=== PATIENT | male | born 1935 | race Caucasian/White ===

== ENCOUNTER 2021-08-23 01:16 | Outpatient (CLI) | payer OTHER, SELFPAY ==
[2021-08-23 11:43] LABS: Source Nasal/Nares
[2021-08-23 14:08] LABS: COVID-19 PCR Negative (Negative)
== END 2021-08-23 01:17 | disposition home or self-care (01) ==
LOC: LBO 01:16
PROVIDERS: Visit Provider Ophthalmology
DX: Z20.822 Contact with and (suspected) exposure to COVID-19 (principal); Z01.818 Encounter for other preprocedural examination
CPT/HCPCS: 87635

== ENCOUNTER 2021-08-26 08:47 | Day surgery (SDC) | payer OTHER, SELFPAY ==
[2021-08-26] MEDS: Tropicam./Phenyleph. (1/2.5%) 5 ML BTL OD ×3 (09:18→09:31)
[2021-08-26 09:19] VITALS: BP 134/79; PULSE 63; RESP 17; TEMP 36.4; O2SAT 94
--- NOTE | 2021-08-26 10:14 | ANES.PREOP_ITS ---
General Info Date of Service Date Performed: 08/26/21 Height: 5 ft 7 in Weight: 83.1 kg Body Mass Index (BMI): 28.7 Surgical Procedure: Operation Date: 08/26/21 10:40 Proposed Procedures Side Surgeon p Cataract Extraction with IOL Implant Right Avtar Hayes MD Meds Allergies and Home Medications Allergies Allergy/AdvReac Type Severity Reaction Status Date / Time No Known Allergies Allergy Unverified 08/26/21 09:23 Home Medication Medication Instructions Recorded amlodipine 5 mg PO DAILY 08/21/21 aspirin 81 mg PO DAILY 08/21/21 carboxymethylcellulose sodium 1 drp OPHTHALMIC (EYE) BID PRN 08/21/21 clopidogrel 75 mg PO DAILY 08/21/21 fluorometholone 1 drp OPHTHALMIC (EYE) DIRECTED 08/21/21 glipizide 10 mg PO DAILY 08/21/21 glucose 4 g PO DIRECTED 08/21/21 hydrochlorothiazide 25 mg PO DAILY 08/21/21 latanoprost 1 drp OPHTHALMIC (EYE) HS 08/21/21 metformin 1,000 mg PO BID 08/21/21 metoprolol succinate 200 mg PO DAILY 08/21/21 timolol maleate 1 drp OPHTHALMIC (EYE) Q12H 08/21/21 Current Visit Medications: Current Medications Generic Name Dose Route Start Last Admin Trade Name Freq PRN Reason Stop Dose Admin Acetaminophen 1,000 mg 08/26/21 06:00 Acetaminophen 500 Mg Tab PO Q4H PRN PRN Miscellaneous Medication 0 ml 08/26/21 06:00 Prednisolone 1%, Moxifloxacin 0.5%, Nepafenac 0.1% 5ml Btl OD DIRECTED [facility] Miscellaneous Medication 0 ml 08/26/21 06:00 08/26/21 09:31 Tropicam./Phenyleph. 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 PT. STATES HE NO LONGER HAS TO F/U WITH CARDIOLOGY Tobacco Smoking/Tobacco Use Status: Never Alcohol Alcohol Intake: never Substance Use Substance use: Never Substance use type: does not use Vital Signs and Lab Results Vital Signs Most Recent Vital Signs in EMR: Most Recent Vital Signs Temp Pulse Resp BP Pulse Ox 36.4 C L 63 17 134/79 94 08/26/21 09:19 08/26/21 09:19 08/26/21 09:19 08/26/21 09:19 08/26/21 09:19 Point of Care Results Point of Care Results: Finger Stick Blood Glucose 241 08/26/21 09:04 Lab Results Blood Type / Crossmatch: No Data to Display Complete Blood Count: No Data to Display Complete Metabolic Panel: No Data to Display Liver Function Panel: No Data to Display Coagulation Panel: No Data to Display Cardiac Panel: No Data to Display Arterial Blood Gas: No Data to Display Venous Blood Gas: No Data to Display Pancreas Panel: No Data to Display Thyroid Panel: No Data to Display Infectious Disease: Coronavirus (COVID-19)(PCR) Negative (Negative) 08/23/21 08:56 08/23/21 Coronavirus 2019 Source Nasal/Nares 08/23/21 08:56 08/23/21 Blood Cultures: No Data to Display Toxicology Panel: No Data to Display Anesthesia Assessment and Plan Anesthesia History Personal History: No History of Anesthesia Complications Family History: No Family History of Anesthesia Complications Exercise Tolerance Exercise Tolerance: Metabolic Equivalents>4 Pertinent Negatives Pertinent Negatives: No Symptoms of GERD, No Major Cardiovascular Symptoms or Complaints, No Major Pulmonary Symptoms or Complaints and No History of CVA/TIA Cardiac & Pulmonary Exam Cardiac Exam: Normal S1/S2 Heart Sounds Pulmonary Exam: Clear Bilateral Breath Sounds Implantable Cardiac Device Does patient have a Pacemaker or an ICD?: No Airway Exam Known Difficult Airway: No Mallampati Class: 2 Mouth Opening: Normal (> 3cm) Thyromental Distance: Greater than 3 cm Facial Hair: Full [place]ck Range of Motion: Full ROM Neck Circumference: Thick Teeth Condition: Normal Dentition Airway Comments: Multiple missing but no loose teeth ASA Classification ASA Score: ASA 2 Emergency Case?: No NPO Status NPO Status: NPO Clears >2 hours, Solids >8 hours Anesthesia Plan Resuscitation Status: Full Code Anesthesia Technique: MAC Anesthesia Airway Planned: Natural Airway Monitors Used: Standard Monitors
[2021-08-26 10:16] VITALS: BMI 28.7
[2021-08-26] MEDS: Tetracaine 0.5% 4 ML BTL OD (10:27)
[2021-08-26] MEDS: Lidocaine 2% Jelly 6 ML SYR (10:27)
[2021-08-26] MEDS: Balanced Salt Soln.-PLUS 500 ML BAG (10:35)
[2021-08-26] MEDS: Duovisc Viscoelastic System EACH 1 EACH (10:36)
[2021-08-26] MEDS: Povidone-Iodine Ophth 30 ML BTL (10:38)
[2021-08-26 10:58] VITALS: BP 163/78; PULSE 62; RESP 18; TEMP 36.1; O2SAT 97
--- NOTE | 2021-08-26 11:00 | W.PM.DSUDISC ---
Discharge Plan Disposition Patient Disposition: HOME Condition: Good Discharge Details Attending Provider: Avtar Hayes Primary Care Provider: Tigist Tyler Home Meds and New Rx's Prescriptions: No Action latanoprost 0.005 % Drops 1 drp ophthalmic (eye) HS RF: 0 metoprolol succinate 200 mg Tablet Extended Release 24 Hr 200 mg PO DAILY RF: 0 glipizide 10 mg Tablet 10 mg PO DAILY RF: 0 clopidogrel 75 mg Tablet 75 mg PO DAILY RF: 0 amlodipine 5 mg Tablet 5 mg PO DAILY RF: 0 aspirin 81 mg Tablet,Delayed Release (Dr/Ec) 81 mg PO DAILY RF: 0 carboxymethylcellulose sodium 0.5 % Drops 1 drp ophthalmic (eye) BID PRNRF: 0 metformin 1,000 mg Tablet 1,000 mg PO BID RF: 0 fluorometholone 0.1 % Drops,Suspension 1 drp ophthalmic (eye) DIRECTED RF: 0 hydrochlorothiazide 25 mg Tablet 25 mg PO DAILY RF: 0 timolol maleate 0.5 % Drops 1 drp ophthalmic (eye) Q12H RF: 0 glucose Tablet,Chewable 4 g PO DIRECTED RF: 0 Discharge Instructions Stand Alone Forms: Post-op Topical CataractAve (DSU) Discharge Orders Discharge Orders: Discharge Order (Routine); Ordered 08/26/21 Ordered By: Avtar Hayes DS: Diagnosis Discharge Diagnosis (1) Nuclear sclerotic cataract of right eye: Status: Resolved (2) Cortical cataract of right eye: Status: Resolved
--- NOTE | 2021-08-26 11:01 | ROE_ITS ---
Date of service: 08/26/21 Time of Service: 11:01 Operative Note Operative Note DATE OF PROCEDURE: 08/26/21 PRE-OP DIAGNOSIS: Nuclear/cortical cataract, right eye Poorly dilating pupil, right eye POST-OP DIAGNOSIS: same PROCEDURE: Cataract extraction using phacoemulsification with intraocular lens implant, right eye Pupillary dilation, right eye using 6.25 mm Malyugin Ring device SURGEON: Avtar Hayes ANESTHESIA TYPE: Local By Surgeon and MAC Refer to Anesthesia Record ESTIMATED BLOOD LOSS: 0 PATHOLOGY: none sent COMPLICATIONS: None Patient was transported to: same day Patient's condition: stable Implants: Inocente Clareon [id number] Indications: Progressive decreased vision due to cataract, right eye Procedure Description: CATARACT SURGERY OPERATIVE REPORT PREOPERATIVE DIAGNOSIS: Nuclear/cortical cataract, right eye Poorly dilating pupil, right eye POSTOPERATIVE DIAGNOSIS: Same OPERATION: Cataract extraction using phacoemulsification with posterior chamber intraocular lens implant, right eye. Pupil dilation and iris stabilization with pupillary expansion device. IOL: IOL Die Storage Clerk/Model: Inocente Clareon [id number] IOL Power: + 22.5 diopters IOL Serial Number: [id number] Optic Diameter: 6.0mm Haptic/Overall Diameter: 13.0mm PHACO INFO: Inocente mGeneratorurion Vision System with OZil and Active Fluidics Cumulative Dispersed Energy (CDE): 8.94 seconds SURGEON: Avtar Hayes MD, EMANUEL ANESTHESIA: Monitored Anesthesia Care (MAC), with local sub-tenon's anesthetic infiltration COMPLICATIONS: None SPECIMENS: None INDICATIONS FOR PROCEDURE: The patient is a 86-year-old gentleman with history of diminished visual acuity in his right eye secondary to the development of nuclear and cortical cataract. The option of cataract surgery was offered to the patient and he wished to proceed. He has poorly dilating pupil in the right eye. PROCEDURE: The correct surgical eye was identified and marked as the right eye and the pupil was dilated in the preoperative area using mydriatics and cy cloplegics. The dilated pupil size was 4.0 mm. He elected to proceed without oral sedation.. The patient was brought to the operating room where cardiopulmonary monitoring was instituted and surgical time-out was performed, confirming the correct operative eye and IOL power. Topical anesthesia was administered and ophthalmic povidone-iodine 5% was instilled into the conjunctival fornices. Lidocaine gel was applied to the cornea and the adams-ocular area was prepped with Betadine 10% solution and draped in the usual sterile fashion for intraocular surgery, including an aperture drape. A Tegaderm transparent film dressing was cut in half and used to cover the lashes and lid margins. Care was taken to sequester the lashes and lid margins under the Tegaderm dressing. A lid speculum was placed between the lids of the operative eye and the Ana-Ann operating microscope was maneuvered into position. Ave scissors were then used to make a conjunctival buttonhole approximately 6mm posterior to the limbus in the inferonasal quadrant. Blunt dissection was carried out to expose bare sclera, and a blunt-tipped sub-tenon?s anesthesia cannula was introduced and passed posteriorly along the globe where non- preserved plain lidocaine was injected into posterior sub-Tenon?s space. A sideport knife was used to make a paracentesis port inferiortemporally. Intraocular phenylephrine/lidocaine was injected into the anterior chamber. The anterior chamber was then filled with viscoelastic. A 2.4mm keratome knife was used to create a half-thickness groove at the limbus and then to construct a three-plane near-clear corneal tunnel extending 2.0mm into clear cornea in the superiortemporal position. A 6.25 mm pupil expansion device was inserted into the pupillary space and engaged with the Kuglen hook.. A flap was raised on the anterior capsule and capsulorhexis forceps were used to complete a continuous curvilinear capsulorhexis of 5.0 mm. Balanced salt solution was then used to perform cortical cleaving hydrodissection and nuclear hydrodelineation until the lens could be freely rotated within the capsular bag. The lens nucleus was then disassembled and removed within the capsular bag and iris plane using phacoemulsification. Residual cortical material was removed using the I/A handpiece. The posterior capsule was carefully polished to remove as much residual lens epithelial cells as safely possible. The capsular bag was then inflated and the anterior chamber deepened with viscoelastic. The lens implant described above was inserted into the capsular bag using the Inocente Autonome Injector. A Kuglen hook was used to dial the IOL into position. The Malyugin Ring was then removed in the reverse order of its insertion. Residual viscoelastic was then removed first from posterior to the IOL, then from the anterior chamber using the I/A handpiece. The lens implant was noted to center nicely within the capsular bag. The incisions were stromally hydrated, and the anterior chamber was reformed using BSS. Then 0.5cc of moxifloxacin 1.0mg/ml were injected into the capsular bag and anterior chamber. The incisions were checked with a Weck spear and found to be secure. Several drops of ophthalmic povidone-iodine 5% were then applied to the eye followed by two drops of Imprimis combination prednisolone/moxifloxacin/nepafenac solution. The drapes were removed and a clear plastic protective eye shield was placed over the eye. The patient was then returned to Same Day Surgery in stable condition.
--- NOTE | 2021-08-26 11:02 | W.ANESPOSTOP ---
Postoperative Evaluation Date, Time and Location Date Performed: 08/26/21 Time Performed: 11:03 Patient Location: Day Surgery Unit Vital Signs Most Recent Imported Vital Signs: Most Recent Vital Signs Temp Pulse Resp BP Pulse Ox 36.4 C L 63 17 134/79 94 08/26/21 09:19 08/26/21 09:19 08/26/21 09:19 08/26/21 09:19 08/26/21 09:19 Most Recent Manually Entered Vital Signs: Adult Blood Pressure: 163/78 Heart Rate: 57 Respirations: 12 Oxygen Saturation (%): 97 Temperature (C): 36.3 C Pain Score (0-10 Scale): 0 Pain Score Most Recent Pain Score: Most Recent Pain Score Pain Level 0 08/26/21 09:19 Assessment Mental Status: Awake (Alert & Oriented to Patient Baseline) Airway and Respiratory Function: Patent airway with normal (patient baseline) respiratory exam Cardiovascular Function: Hemodynamically Stable Hydration Status: Adequately Hydrated Nausea & Vomiting: No Nausea or Vomiting Pain: Pt. Denies Any Pain Peripheral Nerve Block: Patient did not receive a nerve block
[2021-08-26 11:03] VITALS: BP 163/78; PULSE 57; RESP 12; TEMPC 36.3; O2SAT 97
== END 2021-08-26 11:22 | disposition home or self-care (01) ==
PROVIDERS: PCP Occupational Therapist; Visit Provider Ophthalmology
PROC: (CPT 66982; principal; 2021-08-26 10:30)
DX: H25.11 Age-related nuclear cataract, right eye (principal); H57.03 Miosis; E11.9 Type 2 diabetes mellitus without complications; I10 Essential (primary) hypertension; E78.5 Hyperlipidemia, unspecified; I25.10 Atherosclerotic heart disease of native coronary artery without angina pectoris
CPT/HCPCS: 66982; V2632

== ENCOUNTER 2021-12-27 03:12 | Inpatient (IN) | payer OTHER, SELFPAY ==
[2021-12-27] VITALS (23 sets, daily range): BP systolic 123–195; BP diastolic 66–101; PULSE 56–80; RESP 13–63; TEMP 36.4–37; O2SAT 90–97
--- NOTE | 2021-12-27 03:00 | RT.EKG_ITS ---
APPROVED REPORT Exam: Resting ECG Reason for Exam: chest pain Patient Location: E HR:61 bpm ECG Measurements Heart Rate 61 AXIS NC 199 P 18 QRSd 105 QRS 53 QT 447 T 35 QTc 451 Conclusion Sinus rhythm...normal P axis, V-rate 60- 99 Ventricular premature complex...V complex w/ short R-R interval
--- NOTE | 2021-12-27 03:15 | DI.CT_ITS ---
Exam(s) CT THORAX ABD/PEL CTA EXAM: CT THORAX ABD/PEL CTA CLINICAL HISTORY: pain low abd to chest. TECHNIQUE: Imaging Protocol: Axial CT angiography was performed with multi-slice acquisition and m ulti-planar and/or 3D reconstructions. CONTRAST MATERIAL: Intravenous: Isovue 370 contrast volume:100 mL Oral: No COMPARISON: No exams were available for comparison FINDINGS: CHEST: Tracheobronchial tree: Patent where visualized. Pulmonary parenchyma: No consolidation or dominant measurable mass. No architectural distortion. Pulmonary Arteries: No evidence of filling defect to suggest pulmonary emboli. Mediastinum and Courtney: No dominant adenopathy or fluid collection. There is a small hiatal hernia. Th e esophagus is otherwise unremarkable. Visualized thyroid: Unremarkable. Pleura: No effusion or pneumothorax. Heart: Cardiomegaly. Coronary artery calcifications and/or vascular stents are present. No pericard ial effusion. Aorta: Thoracic aorta non-dilated. No evidence of dissection. There is mild atherosclerosis present. Soft Tissues: Unremarkable. Bones: Sternal wires are in place.Age-appropriate degenerative changes are seen in the spine. ABDOMEN AND PELVIS: Abdomen: Celiac axis/mesenteric arteries: No evidence of occlusion or significant stenosis. Mild atherosclero sis is present. Renal Arteries: No evidence of occlusion or significant stenosis. There is a single renal artery per fusing each kidney. Mild atherosclerosis is seen at the origins. Aorta: No evidence of occlusion or significant stenosis. No aneurysm or dissection. Atherosclerosi s is present. Pelvis: Iliac Arteries: No evidence of occlusion or significant stenosis. Atherosclerosis is present. Common Femoral Arteries: No evidence of occlusion or significant stenosis. Atherosclerosis is prese nt. ABDOMEN: Liver: Normal density. No measurable mass. Portal, Superior Mesenteric, and Splenic Veins: Evaluation is limited as the veins are not well opaci fied on this arterial examination. Gallbladder and Biliary Tract: No radiodense calculus or dilation. Pancreas: Normal density, no abnormal calcifications or inflammatory process. Spleen: Normal. Adrenals: No masses seen. Kidneys: Normal size, contour and axis. No radiodense stones or obstructive uropathy. Bilateral simpl e renal cysts are present. No follow-up is recommended. Bowel: No obstruction or bowel wall thickening. No evidence of appendicitis. There is diverticulosis seen in the descending and sigmoid colon but no evidence of acute diverticulitis. Peritoneal Cavity: No ascites, collection or mesenteric inflammatory response. No free air. Lymph Nodes: Within normal limits. Bones: Degenerative changes are seen in the spine. Soft Tissues: There is a small fat containing umbilical hernia. There are bilateral fat containing i nguinal hernias. PELVIS: Bladder: Symmetric distention, no gross wall thickening. Reproductive Organs: Prostate gland is enlarged. Lymph Nodes: Within normal limits. Bones: Within normal limits. IMPRESSION: No acute findings in the chest, abdomen or pelvis. RADIATION DOSE DELIVERED: 948.86mGy.cm Total DLP DATA REPOSITORY: All CT scans at this facility are submitted to the National Radiology Data Registry (NRDR) Dose Index Registry (DIR) with the [employer] (A[employer]). RADIATION OPTIMIZATION: All CT scans at this facility use at least one of these dose optimization te chniques: automated exposure control; mA and/or kV adjustment per patient size (includes targeted exa ms where dose is matched to clinical indication); or iterative reconstruction.
[2021-12-27 03:32] LABS: Abs Immature Grans 0.06 10^3/uL (0.0-0.06); Absolute Basophil Count 0.04 10^3/uL (0.0-0.2); Absolute Lymphocyte Count 2.54 10^3/uL (1.2-3.4); Absolute Monocyte Count 0.77 10^3/uL (0.1-0.8); Basophils % 0.4; Eosinophils % 3.1; HCT 42.8 % (40.0-50.0); HGB 14.3 g/dL (13.5-17.5); Immature Grans % 0.6; Lymphocytes % 26.4; MCH 31.4 pg (27.0-33.0); MCHC 33.4 % (32.0-36.0); MCV 94 fL (80-95); MPV 10.1 fL (8.0-11.0); Neutrophils % 61.5; Platelet Count 248 10^3/uL (130-400); RBC 4.55 10^6/uL (4.36-5.78); RDW-SD 48.5 fL; WBC 9.61 10^3/uL (4.4-10.8)
[2021-12-27 03:46] LABS: PTT Activated 24.3 sec (21.0-27.5)
[2021-12-27 03:48] LABS: ALT 51 U/L (16-63); AST 26 U/L (15-37); Albumin 3.5 g/dL (3.4-5.0); Alkaline Phosphatase 47 U/L (46-116); Anion Gap 7.9 mmol/L (3-11); BUN 23 mg/dL (7-18); Bilirubin, Total 0.5 mg/dL (0.2-1.0); CO2 28.1 mmol/L (21.0-32.0); CREATININE 1.1 mg/dL (0.70-1.30); Calcium 9.5 mg/dL (8.5-10.1); Chloride 104 mmol/L (98-107); Glucose 198 mg/dL (74-106); Magnesium 1.6 mg/dL (1.8-2.4); Potassium 4.7 mmol/L (3.5-5.1); Sodium 140 mmol/L (136-145); Total Protein 7.6 g/dL (6.4-8.2)
[2021-12-27 03:49] LABS: Troponin I 122 ng/L (<or=60)
--- NOTE | 2021-12-27 04:24 | W.ED.GENAD ---
Discharge Plan Disposition Patient Disposition: STILL A PATIENT Condition: Serious Discharge Details Chief Complaint: Chest Pain Clinical Impression: Acute non-ST elevation myocardial infarction (NSTEMI), Hypomagnesemia, Hypertension Primary Care Provider: Tigist Tyler ED Provider: Parmjit Donovan Home Meds and New Rx's Prescriptions: No Action latanoprost 0.005 % Drops 1 drp ophthalmic (eye) HS metoprolol succinate 200 mg Tablet Extended Release 24 Hr 200 mg PO DAILY glipizide 10 mg Tablet 10 mg PO DAILY clopidogrel 75 mg Tablet 75 mg PO DAILY amlodipine 5 mg Tablet 5 mg PO DAILY aspirin 81 mg Tablet,Delayed Release (Dr/Ec) 81 mg PO DAILY carboxymethylcellulose sodium 0.5 % Drops 1 drp ophthalmic (eye) BID PRN metformin 1,000 mg Tablet 1,000 mg PO BID fluorometholone 0.1 % Drops,Suspension 1 drp ophthalmic (eye) DIRECTED Rx Instructions: in left eye q other day hydrochlorothiazide 25 mg Tablet 25 mg PO DAILY timolol maleate 0.5 % Drops 1 drp ophthalmic (eye) Q12H glucose Tablet,Chewable 4 g PO DIRECTED Medical Decision Making 400 -- 86yo male with history of coronary artery disease status post CABG in 2000, subsequent coronary stents, hypertension, hyperlipidemia, diabetes, here with chest discomfort that woke him from sleep and has persisted over the past 2 hours. Pain initially radiated from his abdomen to his chest. Pain did seem to respond to 2 sublingual nitroglycerin that he took at home. Patient is mildly hypertensive but otherwise hemodynamically stable. I am concerned about acute life-threatening illness. Given location of pain starting his abdomen rating up centrally I am concerned about the the potential for a thoracic aortic dissection. Plan to obtain CTA of the chest abdomen pelvis. Consider ACS. EKG was reviewed and interpreted by me: Please see report, there are subtle ST depressions noted lead I and aVL, no STEMI. --Initial labs reviewed: Troponin 122. Creatinine normal. Mild hypomagnesemia noted of 1.6. 428 --I reviewed CTA of the chest abdomen pelvis and no apparent dissection. Plan to initiate treatment with heparin bolus and infusion, Plavix 600 mg and aspirin. On reassessment, patient notes return of chest pain currently moderate. Plan to give nitroglycerin sublingual and initiate nitroglycerin infusion. 434 -- repeat EKG was reviewed and interpreted by me: Patient now with deepening ST depressions lead I and aVL and new depresions V4-V6. 435 -- I called [facility] transfer center to request transfer and they noted they do not believe they have a bed available but will perform bed check and return call. 445-- I caled [facility] transfer center to request transfer. CTA of the chest was interpreted by radiology: No acute findings. Heart noted to be unremarkable with no cardiomegaly no pericardial effusion. CTA of the abdomen pelvis was interpreted by radiology: No acute findings. 502 --patient reassessed and now pain free with nitroglycerin infusion. I spoke with Dr. Sebastian, advertisement compositor at [facility], discussed ED presentation and course, he agrees with need for transfer and recommends holding here until bed available. He does recommend calling back should pain return. 519 -- I spoke with Dr. Marina, communications professional at [facility], discussed ED presentation course, EKGs were sent for review, he will discuss case with interventional cardiology and get back to me. 611 -- I spoke again with Dr. Marina, he notes that patient will be accepted by Dr. Shaw but not bed immediately available. Possible bed available later today. 654 -- Patient reassessed and continues to be pain free on nitro infusion. Patient continues to have frequent PVCs on monitor. I will give magnesium 1 g IV. Lab Data Lab results reviewed: Yes I reviewed the patient's lab results. Labs: Laboratory Tests Range/Units 12/27/21 12/27/21 12/27/21 03:23 03:23 03:23 WBC (4.4-10.8) 10^3/uL 9.61 RBC (4.36-5.78) 10^6/uL 4.55 Hgb (13.5-17.5) g/dL 14.3 Hct (40.0-50.0) % 42.8 MCV (80-95) fL 94 MCH (27.0-33.0) pg 31.4 MCHC (32.0-36.0) % 33.4 RDW (11.8-14.1) % 14.0 Plt Count (130-400) 10^3/uL 248 MPV (8.0-11.0) fL 10.1 Immature Gran % 0.6 Neutrophils % 61.5 Lymphocytes % 26.4 Monocytes % 8.0 Eosinophils % 3.1 Basophils % 0.4 Nucleated RBC % (0.0-0.3) % 0.0 Absolute Neutrophils (1.2-6.7) 10^3/uL 5.90 Absolute Lymphocytes (1.2-3.4) 10^3/uL 2.54 Absolute Monocytes (0.1-0.8) 10^3/uL 0.77 Absolute Eosinophils (0.0-0.7) 10^3/uL 0.30 Absolute Basophils (0.0-0.2) 10^3/uL 0.04 APTT (21.0-27.5) sec 24.3 Sodium (136-145) mmol/L 140 Potassium (3.5-5.1) mmol/L 4.7 Chloride (98-107) mmol/L 104 Carbon Dioxide (21.0-32.0) mmol/L 28.1 Anion Gap (3-11) mmol/L 7.9 BUN (7-18) mg/dL 23 H Creatinine (0.70-1.30) mg/dL 1.1 Estimated GFR/1.73 m2 (mL/min/1.73m2) >= 60.00 Glucose (74-106) mg/dL 198 H Calcium (8.5-10.1) mg/dL 9.5 Magnesium (1.8-2.4) mg/dL 1.6 L Total Bilirubin (0.2-1.0) mg/dL 0.5 AST (15-37) U/L 26 ALT (16-63) U/L 51 Alkaline Phosphatase (46-116) U/L 47 Troponin I (<or=60) ng/L 122 H* Total Protein (6.4-8.2) g/dL 7.6 Albumin (3.4-5.0) g/dL 3.5 HPI General Mode of arrival: ambulatory. Date/Time Provider Initiated Documentation: 12/27/21 03:17. Limitations to Documentation: no limitations. Information obtained by: patient. HPI Narrative: 86-year-old male with history of coronary artery disease status post remote CABG 2000, diabetes, hyperlipidemia, hypertension, presents with chief complaint of chest pain. Patient notes he was sleeping and developed chest pain that woke him around 10 PM. Patient notes pain started in his lower abdomen and radiated up centrally into his chest. Pain was initially severe 03/29. He notes he initially thought discomfort might be indigestion although it did feel similar to when he had ACS requiring bypass. He notes to get out of bed set up and discomfort continued. He later took 2 sublingual nitroglycerin about 30 minutes prior to arrival. Patient notes pain improved after nitro and then resolved in route to the hospital. He has no pain at this time. No associated shortness of breath. No leg pain or swelling. Patient notes that yesterday he was feeling well before he went to bed. Related Data Home Medications Medication Instructions Recorded Confirmed amlodipine 5 mg tablet 5 mg PO DAILY 08/21/21 12/27/21 aspirin 81 mg tablet,delayed 81 mg PO DAILY 08/21/21 12/27/21 release carboxymethylcellulose sodium 0.5 1 drp ophthalmic (eye) BID PRN 08/21/21 12/27/21 % eye drops clopidogrel 75 mg tablet 75 mg PO DAILY 08/21/21 12/27/21 fluorometholone 0.1 % eye 1 drp ophthalmic (eye) DIRECTED 08/21/21 12/27/21 drops,suspension glipizide 10 mg tablet 10 mg PO DAILY 08/21/21 12/27/21 glucose 4 g PO DIRECTED 08/21/21 12/27/21 hydrochlorothiazide 25 mg tablet 25 mg PO DAILY 08/21/21 12/27/21 latanoprost 0.005 % eye drops 1 drp ophthalmic (eye) HS 08/21/21 12/27/21 metformin 1,000 mg tablet 1,000 mg PO BID 08/21/21 12/27/21 metoprolol succinate 200 mg 200 mg PO DAILY 08/21/21 12/27/21 tablet,extended release 24 hr timolol maleate 0.5 % eye drops 1 drp ophthalmic (eye) Q12H 08/21/21 12/27/21 Allergies Allergy/AdvReac Type Severity Reaction Status Date / Time No Known Allergies Allergy Unverified 12/27/21 03:20 General Stated Complaint: Chest Pain GILMER: 3 PFSH All Active Problems (Updated 12/27/21 @ 04:49 by Parmjit Donovan MD) Acute non-ST elevation myocardial infarction (NSTEMI) (Acute) Hypomagnesemia (Acute) Hypertension (Chronic) Medical History (Updated 12/27/21 @ 04:49 by Parmjit Donovan MD) ASCVD (arteriosclerotic cardiovascular disease) Cervicalgia Diabetes mellitus HLD (hyperlipidemia) HTN (hypertension) Hx of renal calculi Low back pain Surgical History (Updated 08/26/21 @ 11:01 by Avtar Hayes MD) Hx of appendectomy Hx of CABG 2000. PT. STATES HE NO LONGER HAS TO F/U WITH CARDIOLOGY Social History Smoking/Tobacco Use Status: Never Smoking risk assessment performed?: Yes Alcohol Intake: never Drug use: Never Substance use type: does not use Do you feel safe at home: Yes Do you feel safe in your relationship?: Yes Exam Const General: cooperative and no acute distress Orientation: alert and awake HENMT Head: normocephalic Mouth: moist mucous membranes Eyes Conjunctivae: normal conjunctivae Sclera: normal sclerae EOM: EOM intact bilaterally Neck Neck: trachea midline and supple Resp Auscultation: clear to auscultation bilaterally, no rales, no rhonchi and no wheezes Cardio Rate: regular rate and not tachycardic Rhythm: regular rhythm GI Palpation: soft, not firm, no guarding, no masses, not rigid and nontender Skin General skin exam: no rashes or lesions noted Neuro General: patient alert, patient awake and tone normal Extrem General: no calf tenderness and no edema Psych Appearance: grossly normal Mental Status: mental status grossly normal Speech and Movement: speech and movement normal Course Vital Signs Vital signs: Vital Signs Temperature 36.4 C L 12/27/21 03:16 Pulse 62 12/27/21 03:16 Respiratory Rate 17 12/27/21 03:16 Blood Pressure 155/81 H 12/27/21 03:16 Pulse Oximetry 94 12/27/21 03:16 Temperature 36.4 C L 12/27/21 03:16 Temperature Source Skin 12/27/21 03:16 Pulse 56 L 12/27/21 04:01 Pulse 63 12/27/21 04:01 Respiratory Rate 20 12/27/21 04:01 Respiratory Effort Non-Labored 12/27/21 03:27 Respiratory Depth Normal 12/27/21 03:27 Respiratory Pattern Normal 12/27/21 03:27 Blood Pressure 126/76 12/27/21 04:01 Blood Pressure Mean 88 12/27/21 04:01 Pulse Oximetry 93 12/27/21 04:01 Pain Level 5 12/27/21 03:16 Lab/Test Results Lab/Test Results: Laboratory Tests Range/Units 12/27/21 12/27/21 12/27/21 03:23 03:23 03:23 WBC (4.4-10.8) 10^3/uL 9.61 RBC (4.36-5.78) 10^6/uL 4.55 Hgb (13.5-17.5) g/dL 14.3 Hct (40.0-50.0) % 42.8 MCV (80-95) fL 94 MCH (27.0-33.0) pg 31.4 MCHC (32.0-36.0) % 33.4 RDW (11.8-14.1) % 14.0 Plt Count (130-400) 10^3/uL 248 MPV (8.0-11.0) fL 10.1 Immature Gran % 0.6 Neutrophils % 61.5 Lymphocytes % 26.4 Monocytes % 8.0 Eosinophils % 3.1 Basophils % 0.4 Nucleated RBC % (0.0-0.3) % 0.0 Absolute Neutrophils (1.2-6.7) 10^3/uL 5.90 Absolute Lymphocytes (1.2-3.4) 10^3/uL 2.54 Absolute Monocytes (0.1-0.8) 10^3/uL 0.77 Absolute Eosinophils (0.0-0.7) 10^3/uL 0.30 Absolute Basophils (0.0-0.2) 10^3/uL 0.04 APTT (21.0-27.5) sec 24.3 Sodium (136-145) mmol/L 140 Potassium (3.5-5.1) mmol/L 4.7 Chloride (98-107) mmol/L 104 Carbon Dioxide (21.0-32.0) mmol/L 28.1 Anion Gap (3-11) mmol/L 7.9 BUN (7-18) mg/dL 23 H Creatinine (0.70-1.30) mg/dL 1.1 Estimated GFR/1.73 m2 (mL/min/1.73m2) >= 60.00 Glucose (74-106) mg/dL 198 H Calcium (8.5-10.1) mg/dL 9.5 Magnesium (1.8-2.4) mg/dL 1.6 L Total Bilirubin (0.2-1.0) mg/dL 0.5 AST (15-37) U/L 26 ALT (16-63) U/L 51 Alkaline Phosphatase (46-116) U/L 47 Troponin I (<or=60) ng/L 122 H* Total Protein (6.4-8.2) g/dL 7.6 Albumin (3.4-5.0) g/dL 3.5 Critical Care Time Critical Care Time Critical Care Time: Yes Total Critical Care Time: 80 Attestation: I spent greater than 80 minutes addressing this patient's immediate life threats. Please see MDM section of note. This time was spent engaged in work directly related to the patient's care, exclusive of separate procedures, and failure to initiate these interventions would have likely resulted in clinically significant or life threatening deterioration in the patient's condition.
--- NOTE | 2021-12-27 04:30 | RT.EKG_ITS ---
APPROVED REPORT Exam: Resting ECG Reason for Exam: chest pain Patient Location: E HR:76 bpm ECG Measurements Heart Rate 76 AXIS IL 214 P 10 QRSd 104 QRS 68 QT 396 T 154 QTc 447 Conclusion Sinus rhythm...normal P axis, V-rate 60- 99 Multiple ventricular premature complexes...V complexes w/ short R-R intervls Borderline prolonged IL interval...IL >212, V-rate 50- 90 Repol abnrm suggests ischemia, lateral leads...ST dep, T neg, I aVL V5 V6
[2021-12-27] MEDS: nitroGLYcerin 0.4 MG TAB SL (04:34)
[2021-12-27] MEDS: Aspirin 81 MG CHEW 324 MG CH (04:36)
[2021-12-27] MEDS: Clopidogrel 300 MG TAB 600 MG PO (04:36)
--- NOTE | 2021-12-27 04:39 | DI.VRAD_ITS ---
PROCEDURE INFORMATION: Exam: CTA Chest With Contrast Exam date and time: 12/27/2021 4:16 AM Age: 86 years old Clinical indication: Chest wall pain; Abdominal pain; Localized; Lower; Prior surgery; Surgery date: 6+ months; Surgery type: Cabg; Additional info: Aute chest pain and lower abd pain TECHNIQUE: Imaging protocol: Computed tomographic angiography of the chest with contrast. 3D rendering (Not supervised by radiologist): MIP and/or 3D reconstructed images were created by the technologist. Radiation optimization: All CT scans at this facility use at least one of these dose optimization techniques: automated exposure control; mA and/or kV adjustment per patient size (includes targeted exams where dose is matched to clinical indication); or iterative reconstruction. Contrast material: ISOVUE 370; Contrast volume: 100 ml; Contrast route: INTRAVENOUS (IV); COMPARISON: No relevant prior studies available. FINDINGS: Pulmonary arteries: Normal. No pulmonary emboli. Aorta: Unremarkable. No aortic aneurysm. No aortic dissection. Lungs: Unremarkable. No consolidation. No masses. Pleural spaces: Unremarkable. No pneumothorax. No pleural effusion. Heart: Unremarkable. No cardiomegaly. No pericardial effusion. Lymph nodes: Unremarkable. No enlarged lymph nodes. Diaphragm: Tiny hiatal hernia. Bones/joints: Unremarkable. No acute fracture. Soft tissues: Unremarkable. IMPRESSION: No acute finding. PROCEDURE INFORMATION: Exam: CTA Abdomen and Pelvis With Contrast Exam date and time: 12/27/2021 4:16 AM Age: 86 years old Clinical indication: Chest wall pain; Abdominal pain; Localized; Lower; Prior surgery; Surgery date: 6+ months; Surgery type: Cabg; Additional info: Aute chest pain and lower abd pain TECHNIQUE: Imaging protocol: Computed tomographic angiography of the abdomen and pelvis with contrast material. 3D rendering (Not supervised by radiologist): MIP and/or 3D reconstructed images were created by the technologist. Radiation optimization: All CT scans at this facility use at least one of these dose optimization techniques: automated exposure control; mA and/or kV adjustment per patient size (includes targeted exams where dose is matched to clinical indication); or iterative reconstruction. Contrast material: ISOVUE 370; Contrast volume: 100 ml; Contrast route: INTRAVENOUS (IV); COMPARISON: No relevant prior studies available. FINDINGS: Aorta: No aortic aneurysm. No aortic dissection. Celiac trunk and mesenteric arteries: No occlusion or significant stenosis. Renal arteries: No occlusion or significant stenosis. Right iliac arteries: No occlusion or significant stenosis. Left iliac arteries: No occlusion or significant stenosis. Liver: Hepatic steatosis. Gallbladder and bile ducts: Unremarkable. No calcified stones. No ductal dilation. Pancreas: Unremarkable. No mass. No ductal dilation. Spleen: Unremarkable. No splenomegaly. Adrenal glands: Unremarkable. No mass. Kidneys and ureters: Renal cysts. No hydronephrosis. Stomach and bowel: Colonic diverticula. Appendix: No evidence of appendicitis. Intraperitoneal space: Unremarkable. No free air. No significant fluid collection. Lymph nodes: Unremarkable. No enlarged lymph nodes. Urinary bladder: Unremarkable. No mass. Reproductive: Prostate hypertrophy. Bones/joints: No acute fracture. Soft tissues: Fat containing inguinal hernias. IMPRESSION: No acute findings. Dictated and Authenticated by: Theo Malone MD. Ordering:LUNA Parnell MD
[2021-12-27 05:19] LABS: Source Nasal/Nares
[2021-12-27 06:07] LABS: COVID-19 PCR Negative (Negative)
[2021-12-27 07:02] LABS: Troponin I 109 ng/L (<or=60)
[2021-12-27] MEDS: MAGNESIUM SULFATE 1 GM/100 ML BAG IVPB ×2 (07:13→12:21)
[2021-12-27] MEDS: nitroGLYcerin in D5W 50 MG/250 ML BTL IV (07:23)
--- NOTE | 2021-12-27 11:04 | W.EDPROG ---
Date of service: 12/27/21 Time of Service: 11:04 Medical Decision Making Resting comfortably no acute distress chest pain-free, given dynamic EKG changes elevated troponin patient likely experiencing an NSTEMI. Heparin has been started patient is on nitro drip. Was excepted at [facility] and [facility] however due to bed situation [facility] has canceled acceptance, diagnosis bed situation may not clear up for another 12 hours to a day, patient will be admitted here at [facility] to the ICU for close monitoring of hemodynamic status and chest pain. Family amenable to plan. Sign Out Sign Out Data: Sign Out Comment: Patient with NSTEMI and concerning dynamic changes on EKG. Now pain-free on nitroglycerin and heparin infusions. He has received aspirin, Plavix, magnesium 1 g IV. Patient is pending transfer, awaiting bed availability. Last updated by Parmjit Donovan MD at 12/27/21 07:23 Discharge Plan Disposition Patient Disposition: [facility] INPATIENT Condition: Serious Discharge Details Clinical Impression: Acute non-ST elevation myocardial infarction (NSTEMI), Hypomagnesemia, Hypertension Primary Care Provider: Tigist Tyler ED Provider: Avtar Nunez Home Meds and New Rx's Prescriptions: No Action latanoprost 0.005 % Drops 1 drp ophthalmic (eye) HS metoprolol succinate 200 mg Tablet Extended Release 24 Hr 200 mg PO DAILY glipizide 10 mg Tablet 10 mg PO DAILY clopidogrel 75 mg Tablet 75 mg PO DAILY amlodipine 5 mg Tablet 5 mg PO DAILY aspirin 81 mg Tablet,Delayed Release (Dr/Ec) 81 mg PO DAILY carboxymethylcellulose sodium 0.5 % Drops 1 drp ophthalmic (eye) BID PRN metformin 1,000 mg Tablet 1,000 mg PO BID fluorometholone 0.1 % Drops,Suspension 1 drp ophthalmic (eye) DIRECTED Rx Instructions: in left eye q other day hydrochlorothiazide 25 mg Tablet 25 mg PO DAILY timolol maleate 0.5 % Drops 1 drp ophthalmic (eye) Q12H glucose Tablet,Chewable 4 g PO DIRECTED alogliptin 25 mg Tablet 25 mg PO DAILY
[2021-12-27 11:29] LABS: PTT Activated 56.6 sec (21.0-27.5)
--- NOTE | 2021-12-27 12:14 | NUR.NOTE ---
Patient arrives at 11:45 a.m. on ICU. RN hears from ED nurse who says patient has a bed at [facility]. RN begins working on transfer paperwork and notifies Dr. Peña who shortly thereafter arrives on unit to work on paperwork.Nursing Note:
--- NOTE | 2021-12-27 12:22 | HPE_ITS ---
Date of service: 12/27/21 Time of Service: 12:22 Assessment and Plan Assessment and plan (1) Acute non-ST elevation myocardial infarction (NSTEMI): Status: Acute Assessment and plan: Continue heparin gtt, nitroglycerin gtt, asa. Transferring to [facility] for a cardiac cath. NPO. (2) Hypomagnesemia: Status: Acute Assessment and plan: Repleted (3) Hypertension: Status: Chronic Assessment and plan: Continue outpatient management (4) Diabetes mellitus: Assessment and plan: NPO. SSI 6 hrs. This H&P also acts as a transfer summary due to temporal proximity of admission and transfer. Total Critical Care Time 60 minutes. History of Present Illness History of Present Illness Chief Complaint: chest pain Narrative: Mr Dias is an 86 year old male with PMHx of CAD s/p CABG in 2000, as well as h/o NIDDM2, HTN, hyperlipidemia, who was briefly a patient in [facility] ICU under the hospitalist service on 12/27/21 having presented to [facility] ED with chest pain and dynamic EKG changes with a mild elevation in his troponins. The patient stated that the pain first started in his lower midabdomen and then moved to mid chest while he was walking and moved away with rest. It returned waking him up from sleep at about 10 pm last night. Nitroglycerin helped. When the patient set up, he was still feeling the pain. He thought he was having indigestion or heartburn, but decided to go to the ED. The pain was not accompanied by dizziness, palpitations, shortness of breath, nausea, and it did not radiate. In the ED, he was noted to have dynamic changes in his EKG with deepening T wave inversions in leads 1 and AVL. He had a negative CTA of chest, abdomen, and pelvis. His troponins were 122 and 109 on repeat 3 hrs later. He was treated with plavix load, aspirin, heparin drip and nitroglycerin gtt. He is currently symptom free. The patient does endorse having COVID about 2 weeks ago. He is now symptom free from covid-19. He tested negative for COVID-19 by nasal PCR on arrival to the ED. He was accepted in transfer at both [facility] and [facility] pending bed availability for an evaluation for a cardiac catheterization, unavailable at our facility. A bed has now become available at [facility]. He is accepted to Dr Shaw's service and is hemodynamically stable for transfer. He is medically stable for transfer. Care for patient as well as completion of his discharge summary took 60 minutes on the day of transfer. Please, look at MAR for list of his inpatient medications as the list of medications in this summary includes outpatient prescriptions only. This H&P is also acting as the patient's transfer summary. Review of Systems All systems reviewed & are unremarkable except as noted in HPI and below PFSH All Active Problems (Updated 12/27/21 @ 04:49 by Parmjit Donovan MD) Acute non-ST elevation myocardial infarction (NSTEMI) (Acute) Hypomagnesemia (Acute) Hypertension (Chronic) Medical History (Updated 12/27/21 @ 04:49 by Parmjit Donovan MD) ASCVD (arteriosclerotic cardiovascular disease) Cervicalgia Diabetes mellitus HLD (hyperlipidemia) HTN (hypertension) Hx of renal calculi Low back pain Surgical History (Updated 08/26/21 @ 11:01 by Avtar Hayes MD) Hx of appendectomy Hx of CABG 2000. PT. STATES HE NO LONGER HAS TO F/U WITH CARDIOLOGY Social History Smoking/Tobacco Use Status: Never Smoking risk assessment performed?: Yes Alcohol Intake: never Drug use: Never Substance use type: does not use Do you feel safe at home: Yes Do you feel safe in your relationship?: Yes Meds Allergies and Home Medications Allergies Allergy/AdvReac Type Severity Reaction Status Date / Time No Known Allergies Allergy Unverified 12/27/21 03:20 Home Medications Medication Instructions Recorded Confirmed Type amlodipine 5 mg tablet 5 mg PO DAILY 08/21/21 12/27/21 History aspirin 81 mg tablet,delayed 81 mg PO DAILY 08/21/21 12/27/21 History release carboxymethylcellulose sodium 0.5 1 drp ophthalmic (eye) BID PRN 08/21/21 12/27/21 History % eye drops clopidogrel 75 mg tablet 75 mg PO DAILY 08/21/21 12/27/21 History fluorometholone 0.1 % eye 1 drp ophthalmic (eye) DIRECTED 08/21/21 12/27/21 History drops,suspension glipizide 10 mg tablet 10 mg PO DAILY 08/21/21 12/27/21 History glucose 4 g PO DIRECTED 08/21/21 12/27/21 History hydrochlorothiazide 25 mg tablet 25 mg PO DAILY 08/21/21 12/27/21 History latanoprost 0.005 % eye drops 1 drp ophthalmic (eye) HS 08/21/21 12/27/21 History metformin 1,000 mg tablet 1,000 mg PO BID 08/21/21 12/27/21 History metoprolol succinate 200 mg 200 mg PO DAILY 08/21/21 12/27/21 History tablet,extended release 24 hr timolol maleate 0.5 % eye drops 1 drp ophthalmic (eye) Q12H 08/21/21 12/27/21 History alogliptin 25 mg tablet 25 mg PO DAILY 12/27/21 12/27/21 History Exam Narrative Exam Narrative: General: Pleasant elderly male who is A&Ox3, comfortable in bed Neurological: A&Ox3, no focal deficits Psychiatric: Appropriate speech pattern/content Skin: Visible skin intact HEENT: Atraumatic, normocephalic, EOMI, MMM, clear oropharynx, post- thyroidectomy scar, no submandibular or cervical lymphadenopathy, no JVD Cardiovascular: RRR, no m/r/g Lungs: CTAB Gastrointestinal: soft, nontender, nondistended Genitourinary: deferred Extremities: trace edema LLE, no c/c; trace pedal pulses B; no lesions on B feet Results Imaging Additional studies: CTA chest: No acute findings in the chest, abdomen or pelvis.? EKG #1: HR 61, NSR no acute ischemia EKG #2: ST segment depressions, and T wave inversions, new in leads 1 and AVL. Labs Result diagrams: 12/27/21 03:23 12/27/21 03:23 Labs: Laboratory Results - last 24 hr 12/27/21 12/27/21 12/27/21 03:23 03:23 03:23 WBC 9.61 RBC 4.55 Hgb 14.3 Hct 42.8 MCV 94 MCH 31.4 MCHC 33.4 RDW 14.0 Plt Count 248 MPV 10.1 Immature Gran % 0.6 Neutrophils % 61.5 Lymphocytes % 26.4 Monocytes % 8.0 Eosinophils % 3.1 Basophils % 0.4 Nucleated RBC % 0.0 Absolute Neutrophils 5.90 Absolute Lymphocytes 2.54 Absolute Monocytes 0.77 Absolute Eosinophils 0.30 Absolute Basophils 0.04 APTT 24.3 Sodium 140 Potassium 4.7 Chloride 104 Carbon Dioxide 28.1 Anion Gap 7.9 BUN 23 H Creatinine 1.1 Estimated GFR/1.73 m2 >= 60.00 Glucose 198 H Calcium 9.5 Magnesium 1.6 L Total Bilirubin 0.5 AST 26 ALT 51 Alkaline Phosphatase 47 Troponin I 122 H* Total Protein 7.6 Albumin 3.5 COVID-19 Source SARS-CoV-2 (PCR) 12/27/21 12/27/21 12/27/21 05:15 06:20 11:06 WBC RBC Hgb Hct MCV MCH MCHC RDW Plt Count MPV Immature Gran % Neutrophils % Lymphocytes % Monocytes % Eosinophils % Basophils % Nucleated RBC % Absolute Neutrophils Absolute Lymphocytes Absolute Monocytes Absolute Eosinophils Absolute Basophils APTT 56.6 H Sodium Potassium Chloride Carbon Dioxide Anion Gap BUN Creatinine Estimated GFR/1.73 m2 Glucose Calcium Magnesium Total Bilirubin AST ALT Alkaline Phosphatase Troponin I 109 H* Total Protein Albumin COVID-19 Source Nasal/Nares SARS-CoV-2 (PCR) Negative Last Vital Signs Temp 37.0 C 12/27/21 12:13 Pulse 63 12/27/21 12:13 Resp 63 H 12/27/21 12:13 BP 126/76 12/27/21 12:13 Pulse Ox 95 12/27/21 12:13
--- NOTE | 2021-12-27 12:39 | NUR.NOTE ---
PTT is 56.6 and is therapeutic. No changes are necessary.Nursing Note:
== END 2021-12-27 13:10 | disposition short-term general hospital (02) | DRG 282 ==
LOC: ER 11:17 → ICU 11:34
PROVIDERS: Student in an Organized Health Care Education/Training Program; Admitting Provider Internal Medicine; Emergency Provider Emergency Medicine; PCP Occupational Therapist; Visit Provider Internal Medicine
DX: I21.4 Non-ST elevation (NSTEMI) myocardial infarction (principal); E83.42 Hypomagnesemia; I10 Essential (primary) hypertension; E78.5 Hyperlipidemia, unspecified; E11.9 Type 2 diabetes mellitus without complications; Z86.16 Personal history of COVID-19; I25.10 Atherosclerotic heart disease of native coronary artery without angina pectoris; M54.50 Low back pain, unspecified; M54.2 Cervicalgia; Z87.442 Personal history of urinary calculi; Z79.82 Long term (current) use of aspirin; Z79.84 Long term (current) use of oral hypoglycemic drugs
CPT/HCPCS: 36415; 36416; 71275; 80053; 82962; 87635; 93005; 96365; 96366; 96368; 96376; 99291; 99292; 74174; 83735; 84484; 85025; 85730; 93010; J3475

== ENCOUNTER 2023-11-18 05:08 | Inpatient (IN) | payer OTHER, SELFPAY ==
[2023-11-18] VITALS (85 sets, daily range): BP systolic 121–236; BP diastolic 52–138; PULSE 48–72; RESP 9–39; TEMP 35.6–36.8; O2SAT 88–97
--- NOTE | 2023-11-18 05:00 | RT.EKG_ITS ---
APPROVED REPORT Exam: Resting ECG Reason for Exam: chest pain Patient Location: E HR:63 bpm ECG Measurements Heart Rate 63 AXIS VT 205 P 13 QRSd 111 QRS 56 QT 459 T 68 QTc 469 Conclusion Sinus rhythm...normal P axis, V-rate 60- 99 Nonspecific repol abnormality, lateral leads...ST dep, T neg, I aVL V5 V6 Normal [place] There are no significant changes compared to prior EKG performed on 12/27/2021 at 03:17.
--- NOTE | 2023-11-18 05:11 | ED.GENADUL_ITS ---
Discharge Plan Discharge Details Chief Complaint: Chest Pain Clinical Impression: Chest pain Primary Care Provider: Tigist Tyler ED Provider: Gabino Bailey [place] Meds and New Rx's Prescriptions: No Action latanoprost 0.005 % Drops 1 drp ophthalmic (eye) HS metoprolol succinate 200 mg Tablet Extended Release 24 Hr 200 mg PO DAILY glipizide 10 mg Tablet 5 mg PO BID clopidogrel 75 mg Tablet 75 mg PO DAILY amlodipine 5 mg Tablet 5 mg PO DAILY aspirin 81 mg Tablet,Delayed Release (Dr/Ec) 81 mg PO DAILY carboxymethylcellulose sodium 0.5 % Drops 1 drp ophthalmic (eye) QID PRN metformin 1,000 mg Tablet 1,000 mg PO BID fluorometholone 0.1 % Drops,Suspension 1 drp ophthalmic (eye) DIRECTED Rx Instructions: in left eye q other day hydrochlorothiazide 25 mg Tablet 25 mg PO DAILY timolol maleate 0.5 % Drops 1 drp ophthalmic (eye) Q12H glucose Tablet,Chewable 4 g PO DIRECTED alogliptin 25 mg Tablet 25 mg PO DAILY brimonidine tartrate 0.2 % 1 drp .Q12 lisinopril 20 mg tablet 20 mg PO DAILY atorvastatin 80 mg tablet 80 mg PO DAILY HPI General Mode of arrival: wheelchair . Date/Time Provider Initiated Documentation: 11/18/23 05:11 . Limitations to Documentation: no limitations . Information obtained by: patient . HPI Narrative: Patient arrives to ED with complaint of chest pain. Patient reports waking up around midnight with chest pain. Took a nitroglycerin which improved his pain and he was able to fall back asleep. Woke up around 4 and was still having pain. Does have prior history of bypass surgery, stents, NSTEMI in 2021. Pain seems similar but there is no radiation of pain, shortness of breath, lightheadedness, diaphoresis, nausea. Denies any recent fever or cough. Denies any new leg pain or swelling. Has minimal pain currently. Related Data Home Medications Medication Instructions Recorded Confirmed amlodipine 5 mg tablet 5 mg PO DAILY 08/21/21 12/27/21 aspirin 81 mg tablet,delayed 81 mg PO DAILY 08/21/21 11/18/23 release carboxymethylcellulose sodium 0.5 1 drp ophthalmic (eye) QID PRN 08/21/21 11/18/23 % eye drops clopidogrel 75 mg tablet 75 mg PO DAILY 08/21/21 11/18/23 fluorometholone 0.1 % eye 1 drp ophthalmic (eye) DIRECTED 08/21/21 11/18/23 drops,suspension glipizide 10 mg tablet 5 mg PO BID 08/21/21 11/18/23 glucose 4 g PO DIRECTED 08/21/21 12/27/21 hydrochlorothiazide 25 mg tablet 25 mg PO DAILY 08/21/21 12/27/21 latanoprost 0.005 % eye drops 1 drp ophthalmic (eye) HS 08/21/21 11/18/23 metformin 1,000 mg tablet 1,000 mg PO BID 08/21/21 11/18/23 metoprolol succinate 200 mg 200 mg PO DAILY 08/21/21 11/18/23 tablet,extended release 24 hr timolol maleate 0.5 % eye drops 1 drp ophthalmic (eye) Q12H 08/21/21 11/18/23 alogliptin 25 mg tablet 25 mg PO DAILY 12/27/21 12/27/21 atorvastatin 80 mg tablet 80 mg PO DAILY 11/18/23 11/18/23 brimonidine tartrate 1 drp .Q12 11/18/23 lisinopril 20 mg tablet 20 mg PO DAILY 11/18/23 11/18/23 Allergies Allergy/AdvReac Type Severity Reaction Status Date / Time No Known Allergies Allergy Unverified 11/18/23 05:18 General GILMER: 3 Review of Systems Narrative: Per HPI Exam Narrative Exam Narrative: Const: WDWN elderly male in NAD. VS per triage. HEENT: NC/AT. Normal facial exam. Eyes: Normal conjunctiva and sclera. Neck: Supple. Trachea midline. Lungs: Normal respiratory effort. Lungs with few scattered rhonchi. Cor: RRR without murmur. Good radial pulses. GI: Soft. NT/ND. Neuro: A+O x 3. Normal speech, mentation, gait. Cranial nerves II - XII grossly intact. No gross motor or sensory deficit. Ext: No C/C/E. Skin: Warm and dry without rash. Medical Decision Making Patient presenting to ED with chest pain that woke him up at midnight, improved with nitroglycerin so that he can go back to sleep, awoke again four with chest pain. History of cardiac disease with recent NSTEMI in 2021. He is on aspirin and clopidogrel. EKG obtained on arrival is sinus rhythm with some lateral ST d epression similar to his EKG from 2021 when he was having his NSTEMI. IV established laboratory studies obtained. Chest x-ray ordered. Aspirin and nitroglycerin given due to concern for recurrent cardiac ischemia. Patient's laboratory studies with a white count of 10.9, normal hemoglobin. Chemistries unremarkable other than slightly elevated BUN at 25 and glucose of 189. Magnesium just a little low at 1.7. Liver function is normal. Initial troponin is normal. D-dimer is negative by age adjustment and by YEARS algorithm. Chest x-ray per my read and pulmonary radiology read with some mild vascular congestion, no overt edema or infiltrate. Patient with relief of his chest pain after 1 sublingual nitroglycerin. Will plan repeat EKG and troponin at the 3-hour rocael. Should receive stress testing prior to discharge given previous history and high HEART score. Patient signed out to oncoming ED physician pending repeat EKG and troponin. Lab Data Lab results reviewed: Yes I reviewed the patient's lab results. ECG Data Attestation: I personally reviewed and interpreted this ECG (s) as follows: Prior ECG tracings: available for review Interpretation: See data/MDM Critical Care Time Critical Care Time Critical Care Time: Yes Total Critical Care Time: 40 Attestation: Upon my evaluation, this patient had a high probability of imminent or life- threatening deterioration, which required my direct attention, intervention, and personal management. I have personally provided 40 minutes of critical care time exclusive of time spent on separately billable procedures. Time includes review of laboratory data, radiology results, discussion with consultants, and m onitoring for potential decompensation. Interventions were performed as documented above. [facility] All Active Problems (Updated 11/18/23 @ 06:38 by Gabino Bailey MD) Chest pain (Acute) Acute non-ST elevation myocardial infarction (NSTEMI) (Acute) Hypomagnesemia (Acute) Hypertension (Chronic) Medical History Hx of renal calculi HLD (hyperlipidemia) HTN (hypertension) Diabetes mellitus ASCVD (arteriosclerotic cardiovascular disease) Cervicalgia Low back pain Surgical History Hx of appendectomy Hx of CABG 2000. PT. STATES HE NO LONGER HAS TO F/U WITH CARDIOLOGY Social History Smoking/Tobacco Use Status: Never Smoking risk assessment performed?: Yes Alcohol Intake: never Drug use: Never Substance use type: does not use Do you feel safe at home: Yes Do you feel safe in your relationship?: Yes
--- NOTE | 2023-11-18 05:15 | DI.RAD_ITS ---
Exam(s) XR PORTABLE CHEST AP EXAM: XR PORTABLE CHEST AP CLINICAL HISTORY: CP. TECHNIQUE: 2D digital imaging was performed. COMPARISON: No exams were available for comparison FINDINGS: Single AP portable view. Sternotomy wires and evidence of previous CABG. Heart size is upper normal. The mediastinum is not widened. No infiltrates nor pleural effusions. No pulmonary edema. No pneumothorax. IMPRESSION: No acute pulmonary findings on this single AP portable view of the chest. Sternotomy and evidence of previous CABG DATA REPOSITORY: RADIATION DOSE DELIVERED:
[2023-11-18] MEDS: nitroGLYcerin 0.4 MG TAB SL (05:23)
[2023-11-18] MEDS: Aspirin 81 MG CHEW 324 MG CH (05:23)
[2023-11-18 05:31] LABS: Abs Immature Grans 0.04 10^3/uL (0.0-0.06); Absolute Basophil Count 0.03 10^3/uL (0.0-0.2); Absolute Eosinophil Count 0.22 10^3/uL (0.0-0.7); Absolute Lymphocyte Count 2.23 10^3/uL (1.2-3.4); Absolute Monocyte Count 0.69 10^3/uL (0.1-0.8); Absolute Neutrophil Count 7.71 10^3/uL (1.2-6.7); Basophils % 0.3 %; HCT 42.4 % (40.0-50.0); Immature Grans % 0.4 %; Lymphocytes % 20.4 %; MCH 31.5 pg (27.0-33.0); MCV 96 fL (80-95); MPV 10.1 fL (8.0-11.0); Monocytes % 6.3 %; Neutrophils % 70.6 %; Platelet Count 273 10^3/uL (130-400); RBC 4.44 10^6/uL (4.36-5.78); RDW 14.6 % (11.8-14.1); RDW-SD 50.8 fL; WBC 10.92 10^3/uL (4.4-10.8)
[2023-11-18 05:47] LABS: ALT 39 U/L (16-63); AST 20 U/L (15-37); Albumin 3.4 g/dL (3.4-5.0); Alkaline Phosphatase 50 U/L (46-116); Anion Gap 8.6 mmol/L (3-11); BUN 25 mg/dL (7-18); Bilirubin, Total 0.5 mg/dL (0.2-1.0); CO2 26.4 mmol/L (21.0-32.0); CREATININE 1.1 mg/dL (0.70-1.30); Chloride 105 mmol/L (98-107); Estimated GFR 64.97 (mL/min/1.73m2); Glucose 189 mg/dL (74-106); Magnesium 1.7 mg/dL (1.8-2.4); Potassium 4.4 mmol/L (3.5-5.1); Sodium 140 mmol/L (136-145); Total Protein 7.6 g/dL (6.4-8.2); Troponin I < 50 ng/L (< or =60)
[2023-11-18 06:04] LABS: D-Dimer 860 ng/mlFEU (<500)
--- NOTE | 2023-11-18 06:25 | DI.VRAD_ITS ---
PROCEDURE INFORMATION: Exam: XR Chest Exam date and time: 11/18/2023 5:28 AM Age: 88 years old Clinical indication: Other: Chest pain; Prior surgery; Surgery date: 6+ months; Surgery type: Cabg 2020 TECHNIQUE: Imaging protocol: Radiologic exam of the chest. Views: 1 view. COMPARISON: No relevant prior studies are available for comparison. FINDINGS: Lungs: No focal consolidation seen. Mild pulmonary vascular congestion. Pleural spaces: No large pleural effusion seen. Heart/Mediastinum: Cardiac silhouette appears enlarged but is magnified by AP technique. Bones/joints: Grossly unremarkable. IMPRESSION: Mild pulmonary vascular congestion and mildly enlarged enlarged cardiac silhouette. Dictated and Authenticated by: Mary Hua MD. Ordering:ARACELI Lloyd MD
[2023-11-18 08:37] LABS: Troponin I < 50 ng/L (< or =60)
[2023-11-18] MEDS: Normal Saline Flush 10 ML SYR IVP ×2 (09:15→19:59)
--- NOTE | 2023-11-18 09:25 | W.PM.HP.N ---
Date of service: 11/18/23 Time of Service: 10:01 Assessment and Plan Assessment and plan (1) Chest pain: Status: Acute Assessment and plan: As noted above patient presented with chest pain and appears to be angina as it does resolve with sublingual nitro -However, he did require 1 dose overnight, as well as 1 in the emergency department -EKG unchanged, troponins 2 times negative -However, given recurrence of chest pain and significantly elevated heart score patient will have stress test tomorrow morning 11/19/2023 -Will hold patient's beta-leighann -Continue aspirin, clopidogrel (2) Hypertension: Status: Chronic Assessment and plan: - Continue home 20 mg lisinopril (3) CAD (coronary artery disease): Status: Chronic Assessment and plan: As noted above- -Continue 80 mg atorvastatin (4) Diabetes mellitus: Assessment and plan: - Continue home regimen of metformin, glipizide History of Present Illness History of Present Illness Chief Complaint: Chest pain Narrative: 88-year-old male with past medical history of CABG in 2000 and NSTEMI with stent placement summer 2021 currently on aspirin and clopidogrel presents to the emergency department with complaints of chest pain. Patient states that he was awoken from sleep around midnight with pressure-like chest pain for which she took sublingual nitroglycerin and had improvement of his symptoms went back to sleep. However, he woke up again around 4 AM with chest pain prompted him to present to the emergency department. He denies any radiation of pain, shortness of breath, lightheadedness, dizziness, diaphoresis, nausea or vomiting. In the emergency department the patient had minimal pain initially but did require additional dose of sublingual nitroglycerin. His EKG did show some lateral ST depressions that were similar to his EKG from 09/08/2021. He was given aspirin as well. CBC and CMP were unremarkable, troponins were 2 times negative as well as age adjusted D-dimer. However, given that the patient required additional dose of sublingual nitroglycerin, and significantly elevated heart score given significant history of coronary artery disease, imaging physician paged hospitalist for admission for patient with angina who will require nuclear stress test for further evaluation. Review of Systems All systems reviewed & are unremarkable except as noted in HPI and below PFSH All Active Problems (Updated 11/18/23 @ 10:52 by JOSE GRIFFITHS) CAD (coronary artery disease) (Chronic) Chest pain (Acute) Acute non-ST elevation myocardial infarction (NSTEMI) (Acute) Hypomagnesemia (Acute) Hypertension (Chronic) Medical History Hx of renal calculi HLD (hyperlipidemia) HTN (hypertension) Diabetes mellitus ASCVD (arteriosclerotic cardiovascular disease) Cervicalgia Low back pain Surgical History Hx of appendectomy Hx of CABG 2000. PT. STATES HE NO LONGER HAS TO F/U WITH CARDIOLOGY Social History Smoking/Tobacco Use Status: Never Smoking risk assessment performed?: Yes Alcohol Intake: never Drug use: Never Substance use type: does not use Housing: house Do you feel safe at home: Yes Do you feel safe in your relationship?: Yes Meds Allergies and Home Medications Allergies Allergy/AdvReac Type Severity Reaction Status Date / Time No Known Allergies Allergy Unverified 11/18/23 05:18 Home Medications Medication Instructions Recorded Confirmed Type amlodipine 5 mg tablet 5 mg PO DAILY 08/21/21 11/18/23 History aspirin 81 mg tablet,delayed 81 mg PO DAILY 08/21/21 11/18/23 History release carboxymethylcellulose sodium 0.5 1 drp ophthalmic (eye) QID PRN 08/21/21 11/18/23 History % eye drops clopidogrel 75 mg tablet 75 mg PO DAILY 08/21/21 11/18/23 History fluorometholone 0.1 % eye 1 drp ophthalmic (eye) DIRECTED 08/21/21 11/18/23 History drops,suspension glipizide 10 mg tablet 5 mg PO BID 08/21/21 11/18/23 History glucose 4 g PO DIRECTED 08/21/21 11/18/23 History hydrochlorothiazide 25 mg tablet 25 mg PO DAILY 08/21/21 11/18/23 History latanoprost 0.005 % eye drops 1 drp ophthalmic (eye) HS 08/21/21 11/18/23 History metformin 1,000 mg tablet 1,000 mg PO BID 08/21/21 11/18/23 History metoprolol succinate 200 mg 200 mg PO DAILY 08/21/21 11/18/23 History tablet,extended release 24 hr timolol maleate 0.5 % eye drops 1 drp ophthalmic (eye) Q12H 08/21/21 11/18/23 History alogliptin 25 mg tablet 25 mg PO DAILY 12/27/21 11/18/23 History atorvastatin 80 mg tablet 80 mg PO DAILY 11/18/23 11/18/23 History brimonidine tartrate 1 drp ophthalmic (eye) .Q12 11/18/23 11/18/23 History lisinopril 20 mg tablet 20 mg PO DAILY 11/18/23 11/18/23 History Exam Narrative Exam Narrative: Well-appearing older gentleman laying in bed in no acute distress, ANO x 4, heart regular rhythm, lungs clear to auscultation bilaterally, abdomen soft, nontender, nondistended Results Labs 11/18/23 05:15 11/18/23 05:15 Labs: Laboratory Results - last 24 hr 11/18/23 11/18/23 05:15 08:13 WBC 10.92 H RBC 4.44 Hgb 14.0 Hct 42.4 MCV 96 H MCH 31.5 MCHC 33.0 RDW 14.6 H Plt Count 273 MPV 10.1 Immature Gran % 0.4 Neutrophils % 70.6 Lymphocytes % 20.4 Monocytes % 6.3 Eosinophils % 2.0 Basophils % 0.3 Nucleated RBC % 0.0 Absolute Neutrophils 7.71 H Absolute Lymphocytes 2.23 Absolute Monocytes 0.69 Absolute Eosinophils 0.22 Absolute Basophils 0.03 D-Dimer 860 H Sodium 140 Potassium 4.4 Chloride 105 Carbon Dioxide 26.4 Anion Gap 8.6 BUN 25 H Creatinine 1.1 Est GFR (CKD-EPI 2020) 64.97 Glucose 189 H Calcium 9.0 Magnesium 1.7 L Total Bilirubin 0.5 AST 20 ALT 39 Alkaline Phosphatase 50 Troponin I < 50 < 50 Total Protein 7.6 Albumin 3.4 Last Vital Signs Pulse 59 L 11/18/23 09:01 Resp 22 11/18/23 09:10 BP 236/93 H 11/18/23 09:01 Pulse Ox 94 11/18/23 09:10 Time Spent Time spent with Patient: >75 minutes Time was spent: preparing to see the patient(eg.review tests), obtaining and/or reviewing separately otained hiistory, ordering medications,tests, procedures, referring, communicating with other health health care / medical job titles, indepentently interpreting results, counseling the patient and care coordination
--- NOTE | 2023-11-18 09:26 | ED.PROG_ITS ---
Date of service: 11/18/23 Time of Service: 09:27 Medical Decision Making Patient was signed out to me by Dr. Woo. Please refer to his HPI, physical exam, assessment and plan. At time of signout we are awaiting repeat troponin. Repeat troponin has returned and is normal. Patient remains chest pain-free at this time. With the patient's high heart score, history of CABG and multiple stents, and the chest pain resolution with the nitro, in addition to the lateral ST depressions which appear to be stable, I do feel that the patient is high risk. Discussed between myself, Dr. Bailey, and the patient and discussed risk factors. Patient agrees to stay for stress testing and serial troponins. [facility] and [facility] of his stay here. Discussed the case with the hospitalist, he agrees with the assessment and plan. I have extensively reviewed the treatment plan with the patient. I have addressed all patient concerns at this time. I have also discussed the plan with the admitting physician and they agree with the current assessment and plan and have agreed to assume responsibility for the patient. All parties demonstrate verbal understanding and agreement with our assessment and plan at this time. The documentation in this chart was dictated using [employer] dictation software. Please excuse any dictation errors. Quality:SDOH Health Related Social Needs: No Data to Display Sign Out Sign Out Data: Sign Out Comment: Progress patient presenting with chest pain with lateral ST changes which have been present previously. Initial troponin is negative. Pain resolved with 1 sublingual nitroglycerin here. Repeat EKG and troponin shortly after 8 AM and if negative should undergo stress testing prior to discharge. Last updated by Gabino Bailey MD at 11/18/23 07:02 Discharge Plan Discharge Details Chief Complaint: Chest Pain Clinical Impression: Chest pain Primary Care Provider: Tigist Tyler ED Provider: Jair Rodriguez Home Meds and New Rx's Prescriptions: No Action latanoprost 0.005 % Drops 1 drp ophthalmic (eye) HS metoprolol succinate 200 mg Tablet Extended Release 24 Hr 200 mg PO DAILY glipizide 10 mg Tablet 5 mg PO BID clopidogrel 75 mg Tablet 75 mg PO DAILY amlodipine 5 mg Tablet 5 mg PO DAILY aspirin 81 mg Tablet,Delayed Release (Dr/Ec) 81 mg PO DAILY carboxymethylcellulose sodium 0.5 % Drops 1 drp ophthalmic (eye) QID PRN metformin 1,000 mg Tablet 1,000 mg PO BID fluorometholone 0.1 % Drops,Suspension 1 drp ophthalmic (eye) DIRECTED Rx Instructions: in left eye q other day hydrochlorothiazide 25 mg Tablet 25 mg PO DAILY timolol maleate 0.5 % Drops 1 drp ophthalmic (eye) Q12H glucose Tablet,Chewable 4 g PO DIRECTED alogliptin 25 mg Tablet 25 mg PO DAILY brimonidine tartrate 0.2 % 1 drp ophthalmic (eye) .Q12 lisinopril 20 mg tablet 20 mg PO DAILY atorvastatin 80 mg tablet 80 mg PO DAILY
[2023-11-18 12:48] LABS: Troponin I < 50 ng/L (< or =60)
--- NOTE | 2023-11-18 13:07 | PHA.REVIEW2 ---
Pharmacy Admission Review Admission Clinical Review Admission Pharmacy Review: Chest pain (Acute) No Known Allergies Allergy (Unverified 11/18/23 05:18) Resuscitation Status Full Code Height 5 ft 8 in Weight 82.3 kg Comments Comments/Follow Ups: Stress test scheduled for tomorrow morning (11/19/23) Pharmacy Admission Review Renal Dosing Renal Dosing: BUN 25 mg/dL (7-18) H 11/18/23 05:15 Creatinine 1.1 mg/dL (0.70-1.30) 11/18/23 05:15 Medications needing adjustments: Reviewed (CrCl 49.4 mL/min) List of meds needing interventions: Current medications are okay Anticoagulation Anticoagulation: Hgb 14.0 g/dL (13.5-17.5) 11/18/23 05:15 Hct 42.4 % (40.0-50.0) 11/18/23 05:15 Plt Count 273 10^3/uL (130-400) 11/18/23 05:15 Creatinine 1.1 mg/dL (0.70-1.30) 11/18/23 05:15 DVT Prophylaxis: Reviewed Medications: Enoxaparin (40mg daily) Relevant Labs Relevant Labs: Sodium 140 mmol/L (136-145) 11/18/23 05:15 Potassium 4.4 mmol/L (3.5-5.1) 11/18/23 05:15 Chloride 105 mmol/L (98-107) 11/18/23 05:15 Magnesium 1.7 mg/dL (1.8-2.4) L 11/18/23 05:15 Electrolytes, C-Reactive P, ESR: Reviewed (Mg 1.7, WBC 10.92) DM Control DM Control: Glucose 189 mg/dL (74-106) H 11/18/23 05:15 DM Control: Reviewed Insulin Dosing, Diabetic Medication: Has order for glipizide and metformin Cardiac Review Cardiac Review: Troponin I < 50 ng/L (< or =60) 11/18/23 12:20 Blood Pressure 170/95 1105 Blood Pressure 170/95 1057 Blood Pressure 205/77 1001 Blood Pressure 236/93 0901 Blood Pressure 182/138 0831 Blood Pressure 182/72 0806 Blood Pressure 184/72 0801 Blood Pressure 193/74 0756 Blood Pressure 184/84 0751 Blood Pressure 182/75 0746 Blood Pressure 161/126 0741 Blood Pressure 177/82 0736 Blood Pressure 173/59 0732 Blood Pressure 172/72 0725 Blood Pressure 140/102 0720 BP, HR, EF%: Reviewed (HR WNL, BP 170/95) QTc Review QTc: Reviewed (469 from 11/18/23) IV to PO Switch IV Medications: Reviewed Home Meds Home Med List reviewed: Intervened Relevent Home Meds Not ordered & why?: Brimonidine, carboxymethylcellulose, fluorometholone, latanoprost and metoprolol (on hold per H+P) Provider aware that orders were not put in for the above eye drops. Waiting on response. Current Meds Current Medication Order Review: Reviewed Comments Comments/Follow Ups: Stress test scheduled for tomorrow morning (11/19/23)
[2023-11-18] MEDS: Enoxaparin 40 MG/0.4 ML SYR SC (15:21)
[2023-11-18] MEDS: Lisinopril 20 MG TAB PO (16:24)
[2023-11-18] MEDS: metFORMIN 500 MG TAB 1000 MG PO (17:48)
[2023-11-18] MEDS: Timolol 0.5% 5 ML BTL OP (19:57)
[2023-11-18] MEDS: glipiZIDE 10 MG TAB 5 MG PO (19:58)
[2023-11-19 02:58] VITALS: BP 142/81; PULSE 72; RESP 17; TEMP 36.8; O2SAT 95
[2023-11-19 06:49] LABS: Troponin I 79 ng/L (< or =60)
[2023-11-19 07:44] VITALS: BP 164/88; PULSE 78; RESP 18; TEMP 36.7; O2SAT 96
[2023-11-19] MEDS: Lisinopril 20 MG TAB PO (07:45)
[2023-11-19] MEDS: metFORMIN 500 MG TAB 1000 MG PO ×2 (07:45→17:19)
[2023-11-19] MEDS: Atorvastatin 40 MG TAB 80 MG PO (07:45)
[2023-11-19] MEDS: Timolol 0.5% 5 ML BTL OP ×2 (07:45→19:44)
[2023-11-19] MEDS: Clopidogrel 75 MG TAB PO (07:46)
[2023-11-19] MEDS: glipiZIDE 10 MG TAB 5 MG PO ×2 (07:46→19:43)
[2023-11-19] MEDS: Normal Saline Flush 10 ML SYR IVP ×2 (07:46→19:45)
[2023-11-19] MEDS: Aspirin E.C. 81 MG TABEC PO (07:46)
[2023-11-19 09:15] VITALS: BP 156/77; PULSE 67; RESP 20; TEMP 36.4; O2SAT 95
--- NOTE | 2023-11-19 09:25 | DI.NM_ITS ---
APPROVED REPORT Exam: Exercise Treadmill Patient Location: In-Patient Room/Bed: Stress Nurse: Jaquelin Batista RN Ordering Provider:SIENA BAIN, Contact Number: BMI: 27.51 Baseline Rhythm: Sinus Rhythm Comment: Resting ST-T abnormalities Indications: Angina Medical History Medical History: CAD, HTN, HLD, DM, CVD Cardiac Medications: Amlodipine, aspirin, plavix, hydrochlorothiazide, metoprolol succinate, timolol, atorvastatin, lisinopril Allergies: NKA Cardiac Risk Factors: Diabetes, HTN, HLD, HLD, CVD Previous Cardiac Procedures: CABG, NSTEMI with PCI Pretest Chest Pain Characteristics: None Exercise History: Physically active Physical Disabilities: None Lung Sounds: Clear to auscultation Heart Sounds: Regular Stress Test Details Test: Exercise stress testing was performed using a Hima protocol. Nuclear Acquisition: Rest Tc-99m/Stress Tc-99m 1 day Rest Isotope: Tc-99m Sestamibi. Dose: 10.0 Date: 11/19/2023 Injection Time: 0815 Stress Isotope: Tc-99m Sestamibi. Dose: 30.0 Date: 11/19/2023 Injection Time: 1015 HR Resting HR Supine: 85 bpm Max Heart Rate (APMHR): 133 bpm Resting HR Standin bpm Target HR (85% APMHR): 113 bpm Max HR Achieved: 135 bpm % of APMHR: 102 Recovery HR: 83 bpm HR response to stress: Accelerated HR response to stress BP Resting BP Supine: 172/80 mmHg Resting BP Standin/86 mmHg Max BP: 218/96 mmHg Recovery BP: 182/94 mmHg BP response to stress: Abnormal hypertensive response to stress. ECG Resting ECG: Sinus Rhythm, minimal downsloping ST depressions inferior leads, nonspecific ST-T abnor malities Ectopy: PVC's Stress ECG: Sinus tachycardia, nonspecific ST-T abnormalities ST Change: Resting ST abnormalities, downsloping ST depression Lead(s): inferior leads Maximum ST Deviation: 1-2 mm Arrhythmia: Occasional PAC's Recovery ECG: Sinus Rhythm, nonspecific ST-T abnormalities Recovery ST Change: Downsloping ST depression Lead(s): inferior leads Recovery ST Deviation: 1-2 mm Recovery Arrhythmia: Occasional PVCs, occasional PAC's Comment: ST depressions back to baseline at end of recovery Clinical Reason for Termination: Target HR Achieved Exercise duration: 1 min29 sec Highest Stage Reached: Stage 1: 1.7 mph at 10% grade. Exercise capacity: 3.42 METs Rate Pressure Product: [id number] Stress ECG Conclusion 1. Resting electrocardiogram showed an IVCD and nondiagnostic ST-T abnormalities 2. It appeared the patient exercised on the Hima protocol and completed half of stage I, a workload of approximately 3 METS 3. Resting hypertension. Moderately hypertensive blood pressure response to exercise. Rapid heart r ate response to activity. Peak heart rate was greater than 100% of predicted for age 4. The electrocardiographic portion of the test was consistent with myocardial ischemia 5. See MPI report Stress Test Summary STAGE Time (mins) Speed (mph) Grade (%) HR BP SpO2 SYMPTOMS METS Supine 85 172/80 94% Standing 99 184/86 1 3 1.7 10 135 4.5 1 min recovery 109 218/96 94% 3 min recovery 86 214/92 6 min recovery 91 202/96 9 min recovery 82 198/92 12 min recovery 83 182/94 94% Patient noted to have minimal baseline ST depressions at rest and T wave inversion in diffuse leads. Ok to proceed with Hima protocol per Dr. Fermin. No c/o of chest pain of SOB. ST depressions back to b aseline at end of recovery. Patient in no apparent distress when he proceeded to imaging with nuclear tech. MPI Conclusion Technically difficult study There is apparent ischemia of the posterolateral wall. Inferobasal infarction may be present Ejection fraction is 46% Radiologist Interpretation Radiologist agrees with Applied Psychology Chair's Interpretation. Radiologist Interpretation by: Nancy Damon MD Interpretation Date/Time: 11/19/2023 15:48:39
[2023-11-19 11:22] VITALS: BP 148/82; PULSE 87; RESP 15; TEMP 36.3; O2SAT 97
[2023-11-19] MEDS: Enoxaparin 40 MG/0.4 ML SYR SC (13:32)
[2023-11-19 15:39] VITALS: BP 145/91; PULSE 91; RESP 17; TEMP 36.3; O2SAT 96
--- NOTE | 2023-11-19 17:04 | PGE_ITS ---
Date of Service Date of service: 11/19/23 Time of Service: 17:04 Assessment and Plan Assessment and plan (1) Chest pain: Status: Acute Assessment and plan: -patient presented with chest pain and appears to be angina as it does resolve with sublingual nitro -However, he did require 1 dose overnight prior to arrival, as well as 1 in the emergency department -EKG unchanged, troponins 3 times negative -Continue aspirin, clopidogrel -Fourth a.m. troponin was checked and was 79, following up troponin this afternoon -Patient stress test positive for posterior lateral wall ischemia and possible inferior basal infarction with an EF of 46% -Discussed with [facility] cardiology; continue current management at this time, if troponin elevates or if patient develops chest pain initiate heparin drip -Patient has been accepted to [facility] cardiology for tomorrow 11/20/2023 for left heart catheterization -A.m. Toprol-XL was held, will start every 6 hour Lopressor 50 mg p.o. (2) Hypertension: Status: Chronic Assessment and plan: - Continue home 20 mg lisinopril (3) CAD (coronary artery disease): Status: Chronic Assessment and plan: As noted above- -Continue 80 mg atorvastatin (4) Diabetes mellitus: Assessment and plan: - Continue home regimen of metformin, glipizide Subjective Subjective Interval history since last seen: Patient states that he is doing well today. He understands that his stress test was negative and that he will be transferred to [facility] tomorrow for cardiac catheterization. Exam Narrative Exam Narrative: Well-appearing older gentleman laying in bed in no acute distress, ANO x 4, heart regular rhythm, lungs clear to auscultation bilaterally, abdomen soft, nontender, nondistended Objective Last Vital Signs Temp 97.3 F L 11/19/23 15:39 Pulse 91 H 11/19/23 15:39 Resp 17 11/19/23 15:39 BP 145/91 H 11/19/23 15:39 Pulse Ox 96 11/19/23 15:39 Laboratory Results - last 24 hr 11/19/23 05:56 Troponin I 79 H* Time Spent with Patient Time Spent with Patient: >50 minutes Time was spent: preparing to see the patient(eg.review tests), obtaining and/or reviewing separately otained hiistory, ordering medications,tests, procedures, referring, communicating with other health child day care provider, indepentently interpreting results, counseling the patient and care coordination
[2023-11-19] MEDS: Metoprolol 50 MG TAB PO (17:19)
--- NOTE | 2023-11-19 17:23 | PDOC.CMIN ---
Date of service: 11/19/23 Time of Service: 17:23 Care Management Initial Assmt Initial Assessment REASON FOR HOSPITALIZATION:: Angina PREVIOUS FUNCTIONAL STATUS/SOCIAL/FAMILY SUPPORTS:: Navid lives in [place], alone. His son Aroldo lives next door to him. He also has a daughter who lives in [place]. Both children are supportive. Navid is independent with ADLs at baseline. CURRENT FUNCTIONAL STATUS:: Navid was sitting up in his chair when CM met with him. His daughter was in the room visiting. Navid stated that he had his stress test early this morning, and has been waiting for the results. He reported that he thought he did well in the stress test, and was expecting to return home today. Per MD report, his stress test was positive for posterior lateral wall ischemia and possible inferior basal infarction with an EF of 46%. discussed his case with [facility] [place] cardiology, who accepted him for transfer tomorrow for left heart catheterization. CM will continue to follow. ADVANCE DIRECTIVES:: Not on file. Has patient been provided with info about the portal/API?: Yes Did the patient sign up for the portal?: No CODE STATUS:: Full Code INSURANCE C[place] / FINAN[place]UES[place] CURRENT HOME/COMMUNITY SERVICES/EQUIPMENT:: None PRIMARY CARE PHYSICIAN:: Tigist Tyler POTENTIAL DISCHARGE NEEDS:: follow up appointments PATIENT/FAMILY EDUCATION NEEDS:: Review discharge instructions and limitations, discussion of self care needs including ask me three. ANTICIPATED BARRIERS TO DISCHARGE:: None identified. TRANSPORTATION:: via EMS for acute transfer PLAN:: Navid had a positive stress test, and [facility] had accepted him in transfer for cardiac catheterization tomorrow. He will transport via EMS, coordinated by RN distribution district supervisor. He will follow up with his PCP and discharge plan of care. CM will continue to follow. PFSH All Active Problems (Updated 11/18/23 @ 10:52 by JOSE GRIFFITHS) CAD (coronary artery disease) (Chronic) Chest pain (Acute) Acute non-ST elevation myocardial infarction (NSTEMI) (Acute) Hypomagnesemia (Acute) Hypertension (Chronic) Medical History Hx of renal calculi HLD (hyperlipidemia) HTN (hypertension) Diabetes mellitus ASCVD (arteriosclerotic cardiovascular disease) Cervicalgia Low back pain Surgical History Hx of appendectomy Hx of CABG 2000. PT. STATES HE NO LONGER HAS TO F/U WITH CARDIOLOGY Social History Smoking/Tobacco Use Status: Never Smoking risk assessment performed?: Yes Alcohol Intake: never Drug use: Never Substance use type: does not use Housing: house Do you feel safe at home: Yes Do you feel safe in your relationship?: Yes SDOH(Care Management) Screening Will the Patient Participate in the Screening?: Yes Do you worry about having a steady place to live?: no Problems where you live: no known problems In the past 12 months, have you had to go without electric, gas, oil or water in your home?: no Have you or anyone in your house had to go without enough food to eat?: no Has lack of transportation kept you from medical appointments or from doing things needed for daily living?: no Has anyone in your support network made you feel unsafe for any reason?: no
--- NOTE | 2023-11-19 20:32 | DSE_ITS ---
Date of service: 11/19/23 Time of Service: 20:32 DS: Diagnosis Discharge Diagnosis (1) Chest pain: Start date: 11/18/23 Status: Acute (2) CAD (coronary artery disease): Status: Chronic (3) Hypertension: Status: Chronic (4) Diabetes mellitus: Discharge Plan Disposition Patient Disposition: Transfer-Acute Inpatient Care Specific Acute Inpt Facility: [facility] Condition: Serious Discharge Details Reason For Visit: Angina Admit Date/Time: 11/19/23 17:04 Admit Provider: Homero Avila Attending Provider: Homero Avila Primary Care Provider: Tigist Tyler Hospital Course Hospital Course: This is an 88-year-old gentleman admitted with exertional chest pain responsive to nitroglycerin. He was on Plavix and aspirin and not initiated on heparin infusion with normal troponins initially. He did have a slightly elevated troponin at 79 with positive nuclear medicine exercise stress test on the day of transfer. He did not have recurrent chest pain even with the stress test. Heparin was never initiated. He did continue on metoprolol with KATE inhibitor and high-dose statin. As stated he is on aspirin and Plavix. He is status post CABG x 4 in the past with known CAD. He remains a full code. [facility] did except the patient and a bed was available with patient transferred via ambulance with ACLS protocol to cardiology service under Dr. Morris. He will remain n.p.o. after midnight with planned cardiac catheterization in the morning. See H&P and progress notes for details of short hospital stay. Home Meds and New Rx's Prescriptions: No Action latanoprost 0.005 % Drops 1 drp ophthalmic (eye) HS metoprolol succinate 200 mg Tablet Extended Release 24 Hr 200 mg PO DAILY glipizide 10 mg Tablet 5 mg PO BID clopidogrel 75 mg Tablet 75 mg PO DAILY amlodipine 5 mg Tablet 5 mg PO DAILY aspirin 81 mg Tablet,Delayed Release (Dr/Ec) 81 mg PO DAILY carboxymethylcellulose sodium 0.5 % Drops 1 drp ophthalmic (eye) QID PRN metformin 1,000 mg Tablet 1,000 mg PO BID fluorometholone 0.1 % Drops,Suspension 1 drp ophthalmic (eye) DIRECTED Rx Instructions: in left eye q other day hydrochlorothiazide 25 mg Tablet 25 mg PO DAILY timolol maleate 0.5 % Drops 1 drp ophthalmic (eye) Q12H glucose Tablet,Chewable 4 g PO DIRECTED alogliptin 25 mg Tablet 25 mg PO DAILY brimonidine tartrate 0.2 % 1 drp ophthalmic (eye) .Q12 lisinopril 20 mg tablet 20 mg PO DAILY atorvastatin 80 mg tablet 80 mg PO DAILY Discharge Instructions Referrals: Tigist Tyler [Primary Care Provider] - (Follow up per DC from [facility]) Activity:: Bed Rest Equipment/Supplies:: No Equipment Needed Diet:: NPO Discharge Orders Discharge Orders: Discharge Order (Routine); Ordered 11/19/23 Ordered By: Isaak Diane Discharge Data Discharge Date/Time-TO BE ENTERED AT DEPARTURE: 11/19/23 21:22 Discharge Comment: Transfer via ambulance with ACLS protocol DS: Summary Time Spent with Patient providing and/or coordinating discharge services: Greater than 30 minutes Status at Discharge Functional status at discharge: independent ambulation Overall status at discharge: patient is back to baseline Mental Status: mental status grossly normal Speech and Movement: speech and movement normal Mood: congruent mood Affect: normal affect Quality:SDOH Health Related Social Needs: No Data to Display Exam Narrative Exam Narrative: General: Patient appears appropriate for age sitting in chair fully dressed and ready for transfer. He is in no acute distress. He is alert and oriented x 3. HEENT:, Eyes with pupils equal and react to light symmetrically, extraocular movement and sclera anicteric. Oropharynx with moist Ko[place]. Neck: Supple without JVD. Back: Slightly kyphotic without CVA tenderness. Lungs: Fair aeration clear to auscultation without focal rales or rhonchi. Heart: Distant heart sounds with regular rate and rhythm, no appreciable murmur or gallop. Abdomen: Soft nontender to palpation with no palpable hepatosplenomegaly. Extremities without clubbing, cyanosis or grossly pitting edema. Skin: Normal color, warm and dry. Actinic changes over sun exposed areas with rough texture. Neuro: No localizing motor deficits, cranial nerves II through XII grossly intact. Psych: Normal affect and mood. No abnormal thought processes. Most recent memory grossly intact. Psych Mental Status: mental status grossly normal Speech and Movement: speech and movement normal Mood: congruent mood Affect: normal affect DS: Data Vitals/I&O Vitals and I&O: Vital Signs Temperature 36.3 C L 11/19/23 15:39 Temperature Source Tympanic 11/19/23 15:39 Pulse 91 H 11/19/23 15:39 Pulse Rhythm Regular 11/19/23 15:00 Pulse 61 11/18/23 10:30 Respiratory Rate 17 11/19/23 15:39 Respiratory Effort Normal, Non-Labored 11/19/23 15:00 Respiratory Depth Normal 11/19/23 15:00 Respiratory Pattern Normal 11/19/23 15:00 Blood Pressure 145/91 H 11/19/23 15:39 Blood Pressure Mean 118 11/18/23 10:01 Pulse Oximetry 96 11/19/23 15:39 Oxygen Delivery Method Room Air 11/19/23 15:39 Oxygen Flow Rate 0 11/19/23 15:39 Pain Level 0 11/19/23 15:39 Comment Nurse Andres notified. 11/18/23 10:57 Intake & Output 11/18/23 11/19/23 11/19/23 23:59 11:59 23:59 Intake Total 1170 / 1170 Balance 1170 / 1170 Weight 170.9 kg Intake: IV Oral 1170 / 1170 Other: Urine Appearance Clear Clear Clear Comment pt is independently voiding. he denies any issues up independently to void Voiding Methods Toilet Toilet Data Completed and Pending Labs on day of discharge: Labs from last 24 hours 11/19/23 11/19/23 20:08 05:56 Troponin I Pending 79 H* Additional Comments Additional comments: Exercise stress test with myocardial perfusion scan positive for exercise ischemia. PFSH All Active Problems CAD (coronary artery disease) (Chronic) Chest pain (Acute) Acute non-ST elevation myocardial infarction (NSTEMI) (Acute) Hypomagnesemia (Acute) Hypertension (Chronic) Medical History Hx of renal calculi HLD (hyperlipidemia) HTN (hypertension) Diabetes mellitus ASCVD (arteriosclerotic cardiovascular disease) Cervicalgia Low back pain Surgical History Hx of appendectomy Hx of CABG 2000. PT. STATES HE NO LONGER HAS TO F/U WITH CARDIOLOGY Social History Smoking/Tobacco Use Status: Never Smoking risk assessment performed?: Yes Alcohol Intake: never Drug use: Never Substance use type: does not use Housing: house Do you feel safe at home: Yes Do you feel safe in your relationship?: Yes Time Spent with Patient Time Spent with Patient: 45-69 minutes Time was spent: preparing to see the patient(eg.review tests), obtaining and/or reviewing separately otained hiistory, indepentently interpreting results and care coordination
[2023-11-19 20:35] LABS: Troponin I 100 ng/L (< or =60)
== END 2023-11-19 21:22 | disposition short-term general hospital (02) | DRG 303 ==
LOC: ER 09:48 → MS 11:08
PROVIDERS: Emergency Medicine; Admitting Provider Family Medicine; Emergency Provider Student in an Organized Health Care Education/Training Program; PCP Occupational Therapist; Visit Provider Family Medicine
DX: I25.119 Atherosclerotic heart disease of native coronary artery with unspecified angina pectoris (principal); I10 Essential (primary) hypertension; Z95.1 Presence of aortocoronary bypass graft; Z79.01 Long term (current) use of anticoagulants; E83.42 Hypomagnesemia; M54.50 Low back pain, unspecified; M54.2 Cervicalgia; E78.5 Hyperlipidemia, unspecified; I25.2 Old myocardial infarction; Z95.5 Presence of coronary angioplasty implant and graft; Z79.84 Long term (current) use of oral hypoglycemic drugs; E11.9 Type 2 diabetes mellitus without complications
CPT/HCPCS: 00123; 36415; 78452; 80053; 93005; 96372; 99291; J1650; 71045; 83735; 84484; 85025; 85379; 93010; 93017; 99223; 99238; G0378

== ENCOUNTER 2024-03-09 19:15 | Emergency (ER) | payer OTHER, SELFPAY ==
[2024-03-09] VITALS (28 sets, daily range): BP systolic 152–190; BP diastolic 61–90; PULSE 46–63; RESP 16–20; TEMP 35.6–37; O2SAT 93–95
--- NOTE | 2024-03-09 19:15 | RT.EKG_ITS ---
APPROVED REPORT Exam: Resting ECG Reason for Exam: Patient Location: E HR:58 bpm ECG Measurements Heart Rate 58 AXIS LA 213 P 40 QRSd 105 QRS 43 QT 430 T 93 QTc 424 Conclusion Sinus bradycardia Minimal ST depression 1, aVL unchanged from priors. No STEMI
[2024-03-09 19:39] LABS: Abs Immature Grans 0.03 10^3/uL (0.0-0.06); Absolute Basophil Count 0.06 10^3/uL (0.0-0.2); Absolute Eosinophil Count 0.41 10^3/uL (0.0-0.7); Absolute Lymphocyte Count 2.74 10^3/uL (1.2-3.4); Absolute Monocyte Count 0.78 10^3/uL (0.1-0.8); Absolute Neutrophil Count 5.08 10^3/uL (1.2-6.7); Basophils % 0.7 %; Eosinophils % 4.5 %; HCT 42.2 % (40.0-50.0); HGB 14.1 g/dL (13.5-17.5); Immature Grans % 0.3 %; Lymphocytes % 30.1 %; MCH 31.4 pg (27.0-33.0); MCHC 33.4 % (32.0-36.0); MCV 94 fL (80-95); MPV 10.2 fL (8.0-11.0); Monocytes % 8.6 %; Neutrophils % 55.8 %; Platelet Count 249 10^3/uL (130-400); RBC 4.49 10^6/uL (4.36-5.78); RDW 14.7 % (11.8-14.1); RDW-SD 51.6 fL
[2024-03-09 19:49] LABS: Prothrombin Time 10.4 sec (9.1-11.1)
[2024-03-09 19:57] LABS: ALT 49 U/L (16-63); AST 27 U/L (15-37); Albumin 3.3 g/dL (3.4-5.0); Alkaline Phosphatase 51 U/L (46-116); Anion Gap 7.8 mmol/L (3-11); BUN 30 mg/dL (7-18); Bilirubin, Total 0.37 mg/dL (0.2-1.0); CO2 26.2 mmol/L (21.0-32.0); CREATININE 1.2 mg/dL (0.70-1.30); Calcium 9.3 mg/dL (8.5-10.1); Chloride 103 mmol/L (98-107); Estimated GFR 58.17 (mL/min/1.73m2); Glucose 298 mg/dL (74-106); Magnesium 1.6 mg/dL (1.8-2.4); Potassium 4.3 mmol/L (3.5-5.1); Sodium 137 mmol/L (136-145); Total Protein 7.3 g/dL (6.4-8.2); Troponin I < 50 ng/L (< or =60)
[2024-03-09] MEDS: Aspirin 81 MG CHEW 243 MG CH (19:58)
[2024-03-09 22:56] LABS: Troponin I < 50 ng/L (< or =60)
--- NOTE | 2024-03-09 23:30 | RT.EKG_ITS ---
APPROVED REPORT Exam: Resting ECG Reason for Exam: Repeat Patient Location: E HR:51 bpm ECG Measurements Heart Rate 51 AXIS AR 212 P 26 QRSd 108 QRS 21 QT 481 T [id number] QTc 444 Conclusion Sinus bradycardia Minimal ST depression 1, aVL unchanged from priors. No STEMI
--- NOTE | 2024-03-09 23:53 | W.ED.GENAD ---
Discharge Plan Disposition Patient Disposition: Home Condition: Stable Discharge Details Clinical Impression: CAD (coronary artery disease), Hypertension, Angina of effort Primary Care Provider: Tigist Tyler ED Provider: Sonal Lopez Home Meds and New Rx's Prescriptions: No Action latanoprost 0.005 % Drops 1 drp ophthalmic (eye) HS metoprolol succinate 200 mg Tablet Extended Release 24 Hr 200 mg PO DAILY glipizide 10 mg Tablet 5 mg PO BID clopidogrel 75 mg Tablet 75 mg PO DAILY amlodipine 5 mg Tablet 5 mg PO DAILY aspirin 81 mg Tablet,Delayed Release (Dr/Ec) 81 mg PO DAILY carboxymethylcellulose sodium 0.5 % Drops 1 drp ophthalmic (eye) QID PRN metformin 1,000 mg Tablet 1,000 mg PO BID fluorometholone 0.1 % Drops,Suspension 1 drp ophthalmic (eye) DIRECTED Rx Instructions: in left eye q other day hydrochlorothiazide 25 mg Tablet 25 mg PO DAILY timolol maleate 0.5 % Drops 1 drp ophthalmic (eye) Q12H glucose Tablet,Chewable 4 g PO DIRECTED alogliptin 25 mg Tablet 25 mg PO DAILY brimonidine tartrate 0.2 % 1 drp ophthalmic (eye) .Q12 lisinopril 20 mg tablet 20 mg PO DAILY atorvastatin 80 mg tablet 80 mg PO DAILY Discharge Instructions Instructions: Angina (DC) Additional Instructions: You were seen in the emergency department today for evaluation of chest pain. In our department a full physical examination performed, had an EKG that was unchanged from your priors, and had 2 negative cardiac enzymes. You are experiencing angina that is related to your heart and you need to be seen by your chip applying machine tender in the next few days because you will require stress testing and likely catheterization to identify the cause of your pain. please continue to take your aspirin and your nitroglycerin when you get pain, but if you have pain that persist despite rest, or any other changes please return to the emergency department for reevaluation. Thank you for allowing us to be part of your care. HPI General Mode of arrival: ambulatory. Date/Time Provider Initiated Documentation: 03/09/24 19:26. Limitations to Documentation: no limitations. Information obtained by: patient, family and old records reviewed. HPI Narrative: MDM: In brief, this is an 89-year-old male patient with a history of coronary artery disease presenting for evaluation of chest pain with exertion. My differential includes but is not limited to ACS including STEMI, NSTEMI, unstable angina. I considered stable angina, given the resolution with nitro/rest. The patient has no tearing sensation, neurovascular deficits, nor pulse deficit/differential to significantly increase my concern for aortic disease. I considered pulmonary causes such as pneumothorax, pneumonia, pulmonary edema, pulmonary embolism, pleural effusion, reactive airway disease exacerbation, but this is less consistent with the patient's history and physical examination. No recent vomiting to suggest Boerhaave syndrome, no abdominal pain to suggest pancreatitis, peptic ulcer disease, esophagitis. The patient has no chest wall tenderness or overlying skin changes to suggest herpes zoster, costochondritis, or chest wall injury. We will obtain EKG, laboratory studies include CBC, CMP, troponin, and will provide the patient with a make-up dose of aspirin to equal a daily dose of 324 mg. At this time the patient is reassuringly chest pain-free, we will certainly provide him with nitroglycerin should he begin to become symptomatic. The patient declines a chest x-ray, and would prefer to avoid this part of the cardiac workup. Given his lack of respiratory symptoms, and my low concern for aortic pathology I feel that this is not unreasonable. ED Course: I reviewed the patient's laboratory studies, which show no leukocytosis, anemia or thrombocytopenia. The chemistry panel is without significant electrolyte derangement. He does have evidence of BUN elevation to 30 with a creatinine of 1.2, and a mildly low magnesium of 1.6. Initial and delta troponin were negative, no evidence of liver dysfunction, and the patient was able to ambulate with me without reproduction of his chest pain. His heart score was calculated to be 5, and he is at high risk for acute cardiac events and given his family's concern over [facility], as well as his chest pain with ambulation in the 100 yards that it takes to get to his house, I feel that admission and expedited stress testing would be recommended for this patient, and reach out to our hospitalist who has graciously accepted this patient for admission to their service for ongoing workup and management. Patient remained hemodynamically appropriate while under my care and was transferred from this department without incident. Sonal Lopez MD HPI: This is an 89-year-old male patient with a past medical history significant for cardiac disease including bypass in 2000 as well as 4 stents, history of hypertension, presenting for evaluation of chest pain. The patient reports that for the last week or so he has had exertional chest pain, occurring with as little activity is walking from the car to his house, a distance of approximately 100 feet. The patient states that he has noted that his chest pain improves with rest, as well as taking his nitroglycerin, but presented to care today because of the increasing frequency with which she is experiencing these events. He took a nitroglycerin just prior to arrival and is currently chest pain-free. He has been taking his baby aspirin every morning, has not had fevers or chills, shortness of breath, cough, nausea or vomiting, but does feel slightly sweaty during these chest pain events. Exam: Gen: Awake and alert, in no apparent distress HEENT: Non-icteric sclera Neck: Supple Lungs: No apparent respiratory distress, normal respiratory effort. Lung sounds clear and equal bilaterally CV: Appears well perfused, heart with regular rate and rhythm, no murmurs auscultated, strong symmetrical distal pulses Abdomen: Non-distended MSK: Moves 4 extremities without apparent limitation in ROM Skin: Visualized skin without rashes, cyanosis. Neuro: Normal Gait, no obvious focal deficits or facial asymmetry. Speaks in full, clear sentences. Psych: Appropriate for situation. Related Data Home Medications ?Medication ?Instructions ?Recorded ?Confirmed amlodipine 5 mg tablet 5 mg PO DAILY 08/21/21 03/09/24 aspirin 81 mg tablet,delayed 81 mg PO DAILY 08/21/21 03/09/24 release carboxymethylcellulose sodium 0.5 1 drp ophthalmic (eye) QID PRN 08/21/21 03/09/24 % eye drops clopidogrel 75 mg tablet 75 mg PO DAILY 08/21/21 03/09/24 fluorometholone 0.1 % eye 1 drp ophthalmic (eye) DIRECTED 08/21/21 03/09/24 drops,suspension glipizide 10 mg tablet 5 mg PO BID 08/21/21 03/09/24 glucose 4 g PO DIRECTED 08/21/21 03/09/24 hydrochlorothiazide 25 mg tablet 25 mg PO DAILY 08/21/21 03/09/24 latanoprost 0.005 % eye drops 1 drp ophthalmic (eye) HS 08/21/21 03/09/24 metformin 1,000 mg tablet 1,000 mg PO BID 08/21/21 03/09/24 metoprolol succinate 200 mg 200 mg PO DAILY 08/21/21 03/09/24 tablet,extended release 24 hr timolol maleate 0.5 % eye drops 1 drp ophthalmic (eye) Q12H 08/21/21 03/09/24 alogliptin 25 mg tablet 25 mg PO DAILY 12/27/21 03/09/24 atorvastatin 80 mg tablet 80 mg PO DAILY 11/18/23 03/09/24 brimonidine tartrate 1 drp ophthalmic (eye) .Q12 11/18/23 03/09/24 lisinopril 20 mg tablet 20 mg PO DAILY 11/18/23 03/09/24 Allergies Allergy/AdvReac Type Severity Reaction Status Date / Time No Known Allergies Allergy Unverified 11/18/23 05:18 General Stated Complaint: Chest Pain GILMER: 2 Course Vital Signs Vital signs: Vital Signs Temperature 35.6 C L 03/09/24 19:20 Pulse 61 03/09/24 19:20 Respiratory Rate 16 03/09/24 19:20 Blood Pressure 190/90 H 03/09/24 19:20 Pulse Oximetry 95 03/09/24 19:20 Temperature 37.0 C 03/09/24 21:02 Temperature Source Tympanic 03/09/24 21:02 Pulse 50 L 03/09/24 21:02 Pulse 54 L 03/09/24 20:10 Respiratory Rate 20 03/09/24 21:02 Respiratory Effort Normal, Non-Labored 03/09/24 19:38 Respiratory Depth Normal 03/09/24 19:38 Respiratory Pattern Normal 03/09/24 19:38 Blood Pressure 152/61 H 03/09/24 21:02 Blood Pressure Position Sitting 03/09/24 19:20 Pulse Oximetry 95 03/09/24 21:02 Oxygen Delivery Method Room Air 03/09/24 21:02 Oxygen Flow Rate 0 03/09/24 21:02 Pain Level 0 03/09/24 19:57 Lab/Test Results Lab/Test Results: Laboratory Tests Range/Units 03/09/24 03/09/24 19:35 22:31 WBC (4.4-10.8) 10^3/uL 9.10 RBC (4.36-5.78) 10^6/uL 4.49 Hgb (13.5-17.5) g/dL 14.1 Hct (40.0-50.0) % 42.2 MCV (80-95) fL 94 MCH (27.0-33.0) pg 31.4 MCHC (32.0-36.0) % 33.4 RDW (11.8-14.1) % 14.7 H Plt Count (130-400) 10^3/uL 249 MPV (8.0-11.0) fL 10.2 Immature Gran % % 0.3 Neutrophils % % 55.8 Lymphocytes % % 30.1 Monocytes % % 8.6 Eosinophils % % 4.5 Basophils % % 0.7 Nucleated RBC % (0.0-0.3) % 0.0 Absolute Neutrophils (1.2-6.7) 10^3/uL 5.08 Absolute Lymphocytes (1.2-3.4) 10^3/uL 2.74 Absolute Monocytes (0.1-0.8) 10^3/uL 0.78 Absolute Eosinophils (0.0-0.7) 10^3/uL 0.41 Absolute Basophils (0.0-0.2) 10^3/uL 0.06 PT (9.1-11.1) sec 10.4 INR (0.9-1.1) 1.0 Sodium (136-145) mmol/L 137 Potassium (3.5-5.1) mmol/L 4.3 Chloride (98-107) mmol/L 103 Carbon Dioxide (21.0-32.0) mmol/L 26.2 Anion Gap (3-11) mmol/L 7.8 BUN (7-18) mg/dL 30 H Creatinine (0.70-1.30) mg/dL 1.2 Est GFR (CKD-EPI 2020) (mL/min/1.73m2) 58.17 Glucose (74-106) mg/dL 298 H Calcium (8.5-10.1) mg/dL 9.3 Magnesium (1.8-2.4) mg/dL 1.6 L Total Bilirubin (0.2-1.0) mg/dL 0.37 AST (15-37) U/L 27 ALT (16-63) U/L 49 Alkaline Phosphatase (46-116) U/L 51 Troponin I (< or =60) ng/L < 50 < 50 Total Protein (6.4-8.2) g/dL 7.3 Albumin (3.4-5.0) g/dL 3.3 L Medical Decision Making Quality:SDOH Health Related Social Needs: No Data to Display PFSH All Active Problems (Updated 03/10/24 @ 00:12 by Sonal Lopez MD) Angina of effort (Acute) CAD (coronary artery disease) (Chronic) Acute non-ST elevation myocardial infarction (NSTEMI) (Acute) Hypomagnesemia (Acute) Hypertension (Chronic) Medical History Hx of renal calculi HLD (hyperlipidemia) HTN (hypertension) Diabetes mellitus ASCVD (arteriosclerotic cardiovascular disease) Cervicalgia Low back pain Surgical History Hx of appendectomy Hx of CABG 2000. PT. STATES HE NO LONGER HAS TO F/U WITH CARDIOLOGY Social History Smoking/Tobacco Use Status: Never Smoking risk assessment performed?: Yes Alcohol Intake: never Drug use: Never Substance use type: does not use Housing: house Do you feel safe at home: Yes Do you feel safe in your relationship?: Yes
[2024-03-10] VITALS (123 sets, daily range): BP systolic 114–228; BP diastolic 51–143; PULSE 45–71; RESP 11–26; O2SAT 85–98
--- NOTE | 2024-03-10 00:56 | HPE_ITS ---
Date of service: 03/10/24 Time of Service: 00:57 Assessment and Plan Assessment and plan (1) Chest pain: Status: Inactive Assessment and plan: Almost certainly this is unstable angina. Will plan on stress test in AM and (presumably) referral to Cardiology thereafter. Will continue usual meds in meantime except hold beta leighann for stress test. DM: usual meds, bid sugars Reviewed ADs. He is not quite sure what exactly he would prefer and elects to be Full Code status for now. 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 Here with one week of exertional CP identoical in quality to prior ischemic episodes. Pain occurs with walking approx 100 feet (level ground) resolves with rest (or NTG) within approx one minute. here in ER trop negative x 2 and EKG (w/o pain) shows baseline findings of lateral ST depressions 1/2-1 mm, no acute findings. Patient declined CXR. Patient given ASA 325 (usualyy on ASA 81, plus Plavix 75). I was asked to evaluate for admission. Review of Systems Narrative: per HPI PFSH All Active Problems Angina of effort (Acute) CAD (coronary artery disease) (Chronic) Acute non-ST elevation myocardial infarction (NSTEMI) (Acute) Hypomagnesemia (Acute) Hypertension (Chronic) Medical History Hx of renal calculi HLD (hyperlipidemia) HTN (hypertension) Diabetes mellitus ASCVD (arteriosclerotic cardiovascular disease) Cervicalgia Low back pain Surgical History Hx of appendectomy Hx of CABG 2000. PT. STATES HE NO LONGER HAS TO F/U WITH CARDIOLOGY Social History Smoking/Tobacco Use Status: Never Smoking risk assessment performed?: Yes Alcohol Intake: never Drug use: Never Substance use type: does not use Housing: house Do you feel safe at home: Yes Do you feel safe in your relationship?: Yes Meds Allergies and Home Medications Allergies Allergy/AdvReac Type Severity Reaction Status Date / Time No Known Allergies Allergy Unverified 11/18/23 05:18 Home Medications ?Medication ?Instructions ?Recorded ?Confirmed ?Type amlodipine 5 mg tablet 5 mg PO DAILY 08/21/21 03/09/24 History aspirin 81 mg tablet,delayed 81 mg PO DAILY 08/21/21 03/09/24 History release carboxymethylcellulose sodium 0.5 1 drp ophthalmic (eye) QID PRN 08/21/21 03/09/24 History % eye drops clopidogrel 75 mg tablet 75 mg PO DAILY 08/21/21 03/09/24 History fluorometholone 0.1 % eye 1 drp ophthalmic (eye) DIRECTED 08/21/21 03/09/24 History drops,suspension glipizide 10 mg tablet 5 mg PO BID 08/21/21 03/09/24 History glucose 4 g PO DIRECTED 08/21/21 03/09/24 History hydrochlorothiazide 25 mg tablet 25 mg PO DAILY 08/21/21 03/09/24 History latanoprost 0.005 % eye drops 1 drp ophthalmic (eye) HS 08/21/21 03/09/24 History metformin 1,000 mg tablet 1,000 mg PO BID 08/21/21 03/09/24 History metoprolol succinate 200 mg 200 mg PO DAILY 08/21/21 03/09/24 History tablet,extended release 24 hr timolol maleate 0.5 % eye drops 1 drp ophthalmic (eye) Q12H 08/21/21 03/09/24 History alogliptin 25 mg tablet 25 mg PO DAILY 12/27/21 03/09/24 History atorvastatin 80 mg tablet 80 mg PO DAILY 11/18/23 03/09/24 History brimonidine tartrate 1 drp ophthalmic (eye) .Q12 11/18/23 03/09/24 History lisinopril 20 mg tablet 20 mg PO DAILY 11/18/23 03/09/24 History Exam Narrative Exam Narrative: 152/61, 50, 37.0, 20, 95% RA. HEENT atraumatic; neck supple w/o JVD; lungs clear; heart sigifredo/regular w/o MRG; abdomen soft and NT; extremities w/o edema, diminished pedal pulses; neuro Ox3, lucid, moves all 4s Results Labs 03/09/24 19:35 03/09/24 19:35 Labs: Laboratory Results - last 24 hr 03/09/24 03/09/24 19:35 22:31 WBC 9.10 RBC 4.49 Hgb 14.1 Hct 42.2 MCV 94 MCH 31.4 MCHC 33.4 RDW 14.7 H Plt Count 249 MPV 10.2 Immature Gran % 0.3 Neutrophils % 55.8 Lymphocytes % 30.1 Monocytes % 8.6 Eosinophils % 4.5 Basophils % 0.7 Nucleated RBC % 0.0 Absolute Neutrophils 5.08 Absolute Lymphocytes 2.74 Absolute Monocytes 0.78 Absolute Eosinophils 0.41 Absolute Basophils 0.06 PT 10.4 INR 1.0 Sodium 137 Potassium 4.3 Chloride 103 Carbon Dioxide 26.2 Anion Gap 7.8 BUN 30 H Creatinine 1.2 Est GFR (CKD-EPI 2020) 58.17 Glucose 298 H Calcium 9.3 Magnesium 1.6 L Total Bilirubin 0.37 AST 27 ALT 49 Alkaline Phosphatase 51 Troponin I < 50 < 50 Total Protein 7.3 Albumin 3.3 L Last Vital Signs Temp 37.0 C 03/09/24 21:02 Pulse 50 L 03/09/24 21:02 Resp 20 03/09/24 21:02 BP 152/61 H 03/09/24 21:02 Pulse Ox 95 03/09/24 21:02 Time Spent Time spent with Patient: 40-54 minutes Time was spent: preparing to see the patient(eg.review tests), obtaining and/or reviewing separately otained hiistory, ordering medications,tests, procedures, referring, communicating with other health animal caretaker and indepentently interpreting results
--- NOTE | 2024-03-10 01:15 | RT.EKG_ITS ---
APPROVED REPORT Exam: Resting ECG Reason for Exam: CP Patient Location: E HR:67 bpm ECG Measurements Heart Rate 67 AXIS MT 218 P 38 QRSd 110 QRS 64 QT 430 T 163 QTc 454 Conclusion Sinus rhythm Compared to priors, new T-wave invesrion and depression in V5, V6, increased depression in 1, aVL.
[2024-03-10 02:27] LABS: PTT Activated 24.7 sec (23.6-32.8)
[2024-03-10] MEDS: Heparin in 0.45% NaCl 25,000 UNIT/250 ML BAG 9.5 UNIT IV (03:45)
--- NOTE | 2024-03-10 03:59 | W.EDPROG ---
Date of service: 03/10/24 Time of Service: 03:59 Medical Decision Making Patient was signed out to me by Dr. Lopez. Please refer to her HPI, physical exam, assessment and plan. Patient was initially admitted to [facility], however he got up to the bathroom and had a notable return of events chest pain, the EKG was performed and showed dynamic changes, with T wave inversions in the lateral leads. Pain returned, and then was subsequently resolved with nitroglycerin administration. We reached out to [facility] for transfer for notably unstable angina as we do not feel stress testing is appropriate here, and that the appropriate next step would be cardiac catheterization with his history. I spoke with Dr. Guzmán of [facility] cardiology, she is excepted patient for transfer under Dr. Stanford. Patient will be transferred via EMS. We have heparinized the patient here. Patient remains hemodynamically stable at this time, no chest pain. I have extensively reviewed the treatment plan with the patient. I have addressed all patient concerns at this time. I have also discussed the plan with the admitting physician and they agree with the current assessment and plan and have agreed to assume responsibility for the patient. All parties demonstrate verbal understanding and agreement with our assessment and plan at this time. The documentation in this chart was dictated using [employer] dictation software. Please excuse any dictation errors. At time of transfer the patient was reassessed and continued to demonstrate No signs of acute respiratory distress requiring intubation, hemodynamic instability requiring pressor support, or rapidly declining mental status. Quality:SDOH Health Related Social Needs: No Data to Display Critical Care Time Critical Care Time Critical Care Time: Yes Total Critical Care Time: 45 Attestation: Upon my evaluation, this patient had a high probability of imminent or life-threatening deterioration, which required my direct attention, intervention, and personal management. I have personally provided 45 minutes of critical care time exclusive of time spent on separately billable procedures. Time includes review of laboratory data, radiology results, discussion with consultants, and monitoring for potential decompensation. Interventions were performed as documented. Sign Out Sign Out Data: Sign Out Comment: 89-year-old male patient with chest pain on minimal exertion with dynamic EKG changes, concerning for unstable angina. Awaiting [facility] cardiology consult, status post aspirin, currently chest pain-free. Last updated by Sonal Lopez MD at 03/10/24 03:21 Discharge Plan Disposition Patient Disposition: Transfer-Acute Inpatient Care Specific Acute Inpt Facility: [facility] Condition: Stable Discharge Details Clinical Impression: CAD (coronary artery disease), Hypertension, Angina of effort Primary Care Provider: Tigist Tyler ED Provider: Jair Rodriguez Home Meds and New Rx's Prescriptions: No Action latanoprost 0.005 % Drops 1 drp ophthalmic (eye) HS metoprolol succinate 200 mg Tablet Extended Release 24 Hr 200 mg PO DAILY glipizide 10 mg Tablet 5 mg PO BID clopidogrel 75 mg Tablet 75 mg PO DAILY amlodipine 5 mg Tablet 5 mg PO DAILY aspirin 81 mg Tablet,Delayed Release (Dr/Ec) 81 mg PO DAILY carboxymethylcellulose sodium 0.5 % Drops 1 drp ophthalmic (eye) QID PRN metformin 1,000 mg Tablet 1,000 mg PO BID fluorometholone 0.1 % Drops,Suspension 1 drp ophthalmic (eye) DIRECTED Rx Instructions: in left eye q other day hydrochlorothiazide 25 mg Tablet 25 mg PO DAILY timolol maleate 0.5 % Drops 1 drp ophthalmic (eye) Q12H glucose Tablet,Chewable 4 g PO DIRECTED alogliptin 25 mg Tablet 25 mg PO DAILY brimonidine tartrate 0.2 % 1 drp ophthalmic (eye) .Q12 lisinopril 20 mg tablet 20 mg PO DAILY atorvastatin 80 mg tablet 80 mg PO DAILY Discharge Instructions Instructions: Angina (DC) Additional Instructions: You were seen in the emergency department today for evaluation of chest pain. In our department a full physical examination performed, had an EKG that was unchanged from your priors, and had 2 negative cardiac enzymes. You are experiencing angina that is related to your heart and you need to be seen by your high school science teacher in the next few days because you will require stress testing and likely catheterization to identify the cause of your pain. please continue to take your aspirin and your nitroglycerin when you get pain, but if you have pain that persist despite rest, or any other changes please return to the emergency department for reevaluation. Thank you for allowing us to be part of your care.
[2024-03-10] MEDS: Metoprolol 50 MG TAB PO (07:41)
[2024-03-10] MEDS: Lisinopril 10 MG TAB (07:41)
--- NOTE | 2024-03-10 08:49 | ED.PROG_ITS ---
Date of service: 03/10/24 Time of Service: 08:50 Medical Decision Making Care assumed from off going provider. Patient is an 89-year-old gentleman currently pending transfer from the emergency department to [facility] for cardiology evaluation and management.` transferred to [facility] without issues. Quality:[facility] Health Related Social Needs: No Data to Display Sign Out Sign Out Data: Sign Out Comment: 89-year-old male patient with chest pain on minimal exertion with dynamic EKG changes, concerning for unstable angina. Awaiting [facility] cardiology consult, status post aspirin, currently chest pain-free. Last updated by Sonal Lopez MD at 03/10/24 03:21 Sign Out Comment: [facility] cardiology accepts patient for unstable angina. Patient heparinized, given oral metoprolol, and his lisinopril. Pending transfer. Last updated by Jair Rodriguez DO at 03/10/24 08:04 Discharge Plan Disposition Patient Disposition: Transfer-Acute Inpatient Care Specific Acute Inpt Facility: [facility] Condition: Stable Discharge Details Clinical Impression: CAD (coronary artery disease), Hypertension, Angina of effort Primary Care Provider: Tigist Tyler ED Provider: María Kang Home Meds and New Rx's Prescriptions: No Action latanoprost 0.005 % Drops 1 drp ophthalmic (eye) HS metoprolol succinate 200 mg Tablet Extended Release 24 Hr 200 mg PO DAILY glipizide 10 mg Tablet 5 mg PO BID clopidogrel 75 mg Tablet 75 mg PO DAILY amlodipine 5 mg Tablet 5 mg PO DAILY aspirin 81 mg Tablet,Delayed Release (Dr/Ec) 81 mg PO DAILY carboxymethylcellulose sodium 0.5 % Drops 1 drp ophthalmic (eye) QID PRN metformin 1,000 mg Tablet 1,000 mg PO BID fluorometholone 0.1 % Drops,Suspension 1 drp ophthalmic (eye) DIRECTED Rx Instructions: in left eye q other day hydrochlorothiazide 25 mg Tablet 25 mg PO DAILY timolol maleate 0.5 % Drops 1 drp ophthalmic (eye) Q12H glucose Tablet,Chewable 4 g PO DIRECTED alogliptin 25 mg Tablet 25 mg PO DAILY brimonidine tartrate 0.2 % 1 drp ophthalmic (eye) .Q12 lisinopril 20 mg tablet 20 mg PO DAILY atorvastatin 80 mg tablet 80 mg PO DAILY Discharge Instructions Instructions: Angina (DC) Additional Instructions: You were seen in the emergency department today for evaluation of chest pain. In our department a full physical examination performed, had an EKG that was unchanged from your priors, and had 2 negative cardiac enzymes. You are experiencing angina that is related to your heart and you need to be seen by your director shopper marketing in the next few days because you will require stress testing and likely catheterization to identify the cause of your pain. please continue to take your aspirin and your nitroglycerin when you get pain, but if you have pain that persist despite rest, or any other changes please return to the emergency department for reevaluation. Thank you for allowing us to be part of your care. Discharge Data Discharge Date/Time-TO BE ENTERED AT DEPARTURE: 03/10/24 13:14
[2024-03-10] MEDS: Acetaminophen 325 MG TAB 650 MG PO (09:48)
[2024-03-10 10:44] LABS: PTT Activated 82.2 sec (23.6-32.8)
== END 2024-03-10 13:14 | disposition short-term general hospital (02) ==
PROVIDERS: Emergency Medicine; Emergency Provider Emergency Medicine; PCP Occupational Therapist
DX: R07.9 Chest pain, unspecified (principal); Z86.79 Personal history of other diseases of the circulatory system; I20.89 Other forms of angina pectoris
CPT/HCPCS: 00123; 36415; 80053; 93005; 96365; 96366; 99285; 83735; 84484; 85025; 85610; 85730; 93010; J1644